=== PATIENT | female | born 1935 | race Caucasian/White ===

== ENCOUNTER 2017-08-24 15:00 | Inpatient (IN) | payer MEDICARE ==
[2017-08-24] MEDS ORDERED: ONDANSETRON 4 MG/2 ML VIAL IVP STA (15:21)
[2017-08-24] MEDS ORDERED: MORPHINE SULFATE 4 MG/ML SYRINGE IVP STA ×2 (15:21→17:26)
[2017-08-24] MEDS ORDERED: IPRATROPIUM-ALBUTEROL 3 ML NEB INHALATION STA (15:21)
[2017-08-24] MEDS ORDERED: DIPH,PERTUS(ACELL)TETVAC-LF 0.5 ML VIAL IM ONE (15:30)
--- NOTE | 2017-08-24 15:34 | ED ---
Fall HPI - General Chief Complaint: Fall Stated Complaint: fall Time Seen by Provider: 08/24/17 15:03 Source: patient, family, EMS Mode of arrival: EMS Limitations: physical limitation - History of Present Illness Initial Comments: This is a 81-year-old female presents emergency Department chief complaint of Fall. Patient States That She Tripped over a Board in the Garage and Fell onto Her Right Hip. Patient States That She Has Right Hip and Right Groin Pain. She Denies Any Head Injury No Loss Conscious. She's Had No Prior Orthopedic Surgeries. Patient Also States That She's Been Sick with Cough Congestion Has Been on Second on Antibiotics and Recent Steroids. Patient States That She Still Has a Persistent Cough. She Is a Former Smoker No Official Diagnosis COPD or Asthma. Patient Reports No Fever No Chills. Patient has no mental abdominal pain. She does have some skin tears on bilateral arm but no pain associated with them. Patient is unsure when her last tetanus was. Patient has a fentanyl from EMS. - Related Data Home Medications Medication Instructions Recorded Confirmed Clopidogrel [Plavix] 75 mg PO DAILY 08/24/17 08/24/17 Doxycycline Hyclate [Vibramycin] 100 mg PO BID 08/24/17 08/24/17 Losartan/Hydrochlorothiazide 1 tab PO DAILY 08/24/17 08/24/17 [Hyzaar 100-25 Tablet] Sertraline [Zoloft] 50 mg PO HS 08/24/17 08/24/17 amLODIPine [Norvasc] 5 mg PO HS 08/24/17 08/24/17 methylPREDNISolone [Medrol Dose See Taper PO DIRECTED 08/24/17 08/24/17 Pack] Allergies Allergy/AdvReac Type Severity Reaction Status Date / Time Penicillins Allergy Unknown Verified 08/24/17 15:47 codeine AdvReac Nausea & Verified 08/24/17 15:47 Vomiting Review of Systems ROS Statement: Those systems with pertinent positive or pertinent negative responses have been documented in the HPI. ROS Other: All systems not noted in ROS Statement are negative. Past Medical History Past Medical History: Cancer History of Any Multi-Drug Resistant Organisms: None Reported Past Surgical History: Cholecystectomy, Heart Catheterization With Stent, Hernia Repair, Hysterectomy Past Psychological History: Depression Smoking Status: Former smoker Past Alcohol Use History: Rare Past Drug Use History: None Reported General Exam Limitations: no limitations General appearance: alert, in no apparent distress Head exam: Present: atraumatic, normocephalic, normal inspection Neck exam: Present: normal inspection, full ROM. Absent: tenderness, meningismus, lymphadenopathy Respiratory exam: Present: wheezes. Absent: normal lung sounds bilaterally, respiratory distress, rales, rhonchi, stridor Cardiovascular Exam: Present: regular rate, normal rhythm, normal heart sounds. Absent: systolic murmur, diastolic murmur, rubs, gallop, clicks GI/Abdominal exam: Present: soft, normal bowel sounds. Absent: distended, tenderness, guarding, rebound, rigid Extremities exam: Present: other (Bilateral arms are notable skin tear, right hip tenderness with palpation there is some shortening rotation noted neurovascular intact) Back exam: Absent: CVA tenderness (R), CVA tenderness (L) Skin exam: Present: warm, dry, intact, normal color. Absent: rash Course Vital Signs 08/24/17 08/24/17 08/24/17 15:05 16:15 16:20 Temperature 98.8 F Pulse Rate 91 96 94 Respiratory 18 18 Rate Blood Pressure 173/76 186/79 O2 Sat by Pulse 89 L 90 L Oximetry 08/24/17 08/24/17 16:31 17:29 Temperature Pulse Rate 94 101 H Respiratory 18 Rate Blood Pressure 181/81 O2 Sat by Pulse 90 L Oximetry Medical Decision Making - Medical Decision Making 81-year-old female presented emergency dept for a fall. Patient's found to have right hip fracture. Patient also had a mass like structure on x-ray of her chest. She did have CT which shows mass concerning for malignancy. Case discussed with neck branch on-call for orthopedics. Patient will be admitted to orthopedics with consult to medicine. - Lab Data Result diagrams: 08/24/17 15:54 08/24/17 15:54 Lab Results 08/24/17 08/24/17 08/24/17 Range/Units 15:54 15:54 15:54 WBC 17.6 H (3.8-10.6) k/uL RBC 5.10 (3.80-5.40) m/uL Hgb 14.6 (11.4-16.0) gm/dL Hct 43.4 (34.0-46.0) % MCV 85.1 (80.0-100.0) fL MCH 28.6 (25.0-35.0) pg MCHC 33.6 (31.0-37.0) g/dL RDW 15.3 (11.5-15.5) % Plt Count 618 H (150-450) k/uL Neutrophils % 85 % Lymphocytes % 9 % Monocytes % 4 % Eosinophils % 1 % Basophils % 0 % Neutrophils # 15.1 H (1.3-7.7) k/uL Lymphocytes # 1.5 (1.0-4.8) k/uL Monocytes # 0.6 (0-1.0) k/uL Eosinophils # 0.2 (0-0.7) k/uL Basophils # 0.1 (0-0.2) k/uL PT 11.0 (9.0-12.0) sec INR 1.1 (<1.2) APTT 24.1 (22.0-30.0) sec Sodium 139 (137-145) mmol/L Potassium 4.4 (3.5-5.1) mmol/L Chloride 101 (98-107) mmol/L Carbon Dioxide 23 (22-30) mmol/L Anion Gap 15 mmol/L BUN 22 H (7-17) mg/dL Creatinine 0.67 (0.52-1.04) mg/dL Est GFR (CKD-EPI)AfAm >90 (>60 ml/min/1.73 sqM) Est GFR (CKD-EPI)NonAf 82 (>60 ml/min/1.73 sqM) Glucose 157 H (74-99) mg/dL Calcium 9.3 (8.4-10.2) mg/dL Total Bilirubin 0.4 (0.2-1.3) mg/dL AST 24 (14-36) U/L ALT 21 (9-52) U/L Alkaline Phosphatase 114 (38-126) U/L Total Protein 6.6 (6.3-8.2) g/dL Albumin 3.8 (3.5-5.0) g/dL Disposition Clinical Impression: Fall, Closed right hip fracture, Lung mass Disposition: ADMITTED IP TO THIS [facility] Condition: Fair Referrals: Nonstaff,Physician [REFERRING] - 1-2 days
[2017-08-24 16:16] LABS: Basophils # (A) 0.1 k/uL (0-0.2); Basophils % (A) 0 %; Eosinophils # (A) 0.2 k/uL (0-0.7); Eosinophils % (A) 1 %; HCT 43.4 % (34.0-46.0); HGB 14.6 gm/dL (11.4-16.0); Lymphocytes # (A) 1.5 k/uL (1.0-4.8); Lymphocytes % (A) 9 %; MCH 28.6 pg (25.0-35.0); MCHC 33.6 g/dL (31.0-37.0); MCV 85.1 fL (80.0-100.0); Mean Platelet Volume 8.7; Monocytes # (A) 0.6 k/uL (0-1.0); Monocytes % (A) 4 %; Neutrophils # (A) 15.1 k/uL (1.3-7.7); Neutrophils % (A) 85 %; Platelet Count 618 k/uL (150-450); RDW 15.3 % (11.5-15.5); WBC 17.6 k/uL (3.8-10.6)
[2017-08-24] MEDS ORDERED: RX INFO: IV CONTRAST WAS GIVEN 1 EACH MISC MISCELLANE PRN (16:17)
--- NOTE | 2017-08-24 16:23 | XR ---
EXAMINATION TYPE: XR chest 1V DATE OF EXAM: 08/24/2017 HISTORY: Shortness of breath. COMPARISON: 01/13/2010 TECHNIQUE: Single view of the chest is submitted. FINDINGS: Demonstrated are scattered senescent parenchymal change. There is left hilar mass noted measuring 5.5 x 5.5 cm felt to reflect malignancy until proven otherwi se. No additional nodules are seen. Suspect AP window adenopathy. The heart is stable. Hilar and mediastinal structures are within normal limits. Degenerative changes are seen of the dorsal spine. IMPRESSION: 1. Left hilar mass felt to reflect malignancy until proven otherwise.
[2017-08-24 16:24] LABS: INR 1.1 (<1.2); Partial Thromboplastin Time 24.1 sec (22.0-30.0)
--- NOTE | 2017-08-24 16:25 | XR ---
EXAMINATION TYPE: XR Hip RT and AP Pelvis DATE OF EXAM: 08/24/2017 COMPARISON: NONE HISTORY: Pain TECHNIQUE: Single view of the pelvis and 2 views of the right hip are submitted. FINDINGS: Lytic lesion in the region of the right femoral neck with pathologic fracture noted. No add itional fractures or lesions identified with certainty at this time. IMPRESSION: 1. Suspect pathologic fracture right femoral neck.
[2017-08-24 16:29] LABS: ALT 21 U/L (9-52); AST 24 U/L (14-36); Albumin 3.8 g/dL (3.5-5.0); Alkaline Phosphatase 114 U/L (38-126); Anion Gap 15 mmol/L; Blood Urea Nitrogen 22 mg/dL (7-17); Calcium 9.3 mg/dL (8.4-10.2); Carbon Dioxide 23 mmol/L (22-30); Chloride 101 mmol/L (98-107); Glucose 157 mg/dL (74-99); Potassium 4.4 mmol/L (3.5-5.1); Sodium 139 mmol/L (137-145); Total Bilirubin 0.4 mg/dL (0.2-1.3); Total Protein 6.6 g/dL (6.3-8.2)
--- NOTE | 2017-08-24 17:32 | CT ---
EXAMINATION TYPE: CT chest w con DATE OF EXAM: 08/24/2017 COMPARISON: NONE HISTORY: Fall. CT DLP: 561 mGycm Automated exposure control for dose reduction was used. CONTRAST: CT scan of the chest is performed with IV Contrast, patient injected with 100ml mL of Isovue M300. FINDINGS: There is a 2 cm pleural-based nodular density at the left lung apex. There is mild pleural thickening at the lung apices. There is coarse interstitial density in both lungs with groundglass density. The re is a 5 cm mass at the left pulmonary hilum. There is a 5 cm masslike infiltrate in the left lower lobe extending to the left pulmonary hilum. There is a 1.5 cm soft tissue nodular density in the left midlung. The heart is enlarged. There is no pericardial effusion. There is there is a 3.5 x 2 cm sub carinal enlarged lymph node. There is a 2 x 1 cm pleural-based infiltrate in the posterior right lowe r lobe. There is spurring in the thoracic spine. I see no focal bone destruction. I see no filling de fects in the pulmonary arteries. Thoracic aorta is atheromatous. There is no evidence of aneurysm or dissection. IMPRESSION: Left hilar mass and left lower lobe masslike infiltrate suspicious for primary malignanc y. Enlarged subcarinal lymph node. Pulmonary interstitial fibrotic changes.
[2017-08-24] MEDS ORDERED: NALOXONE 0.4 MG/ML 1 ML VIAL IV PRN (17:38)
[2017-08-24] MEDS ORDERED: hydrALAZINE HCL 20 MG/ML 1 ML VIAL IVP STA (18:15)
[2017-08-24] MEDS ORDERED: hydrALAZINE HCL 20 MG/ML 1 ML VIAL IVP PRN (18:37)
[2017-08-24] MEDS ORDERED: ALPRAZolam 0.25 MG TAB PO PRN (18:37)
[2017-08-24] MEDS ORDERED: TEMAZEPAM 15 MG CAP PO PRN (18:37)
[2017-08-24 18:47] LABS: Appearance,Urine Clear (Clear); Bilirubin,Urine Negative (Negative); Blood,Urine Negative (Negative); Color,Urine Yellow; Glucose,Urine (UA) Negative (Negative); Ketones,Urine Negative (Negative); Leukocyte Esterase,Urine Negative (Negative); Nitrite,Urine Negative (Negative); Protein,Urine Negative (Negative); Specific Gravity,Urine 1.025 (1.001-1.035); Urobilinogen,Urine <2.0 mg/dL (<2.0)
--- NOTE | 2017-08-24 20:20 | CONS ---
CONSULTATION REASON FOR CONSULTATION: Advice regarding CAD, stent and other medical issues requested by Orthopedic Surgery. HISTORY OF PRESENT ILLNESS: This 81-year-old woman with a past history of CAD stent, history of cholecystectomy, history of depression apparently had a fall, tripping and falling and the patient was complaining of right hip pain. The patient was taken to [facility]. The patient is followed by in the outpatient setting. The x-ray showed suspected pathology fracture of the right femoral neck. The patient also had a CT scan of the chest which showed left hilar mass with left lower lobe masslike lesion, possibly malignancy. Workup is not done at this time. There is no history of fever, rigors. No history of headache, loss of consciousness or seizures. The previous exercise capacity appears to be excellent. PAST MEDICAL HISTORY: Of cholecystectomy, CAD, stent, history of depression, history of nicotine dependence. MEDICATIONS: Prior to admission include: 1. Losartan Hyzaar one p.o. daily. 2. Zoloft 50 mg q.h.s. 3. Vibramycin 100 mg p.o. b.i.d. 4. Plavix 75 mg p.o. daily. 5. Medrol Dosepak and p.r.n. 6. Norvasc 5 mg q.h.s. ALLERGIES: PENICILLIN AND CODEINE. FAMILY HISTORY: No history of heart disease or strokes in the family. SOCIAL HISTORY: Previous history of smoking. No history of alcohol intake. REVIEW OF SYSTEMS: ENT: No diminished hearing or diminished vision. CARDIOVASCULAR: No angina or palpitations. Respiration: As mentioned earlier. GI no nausea. no dysuria. Nervous system: No numbness, weakness. Allergy/ Immunology: No asthma or hayfever. Musculoskeletal: As mentioned earlier. Hematology/Oncology : As mentioned earlier. Endocrine: No history of diabetes or hypothyroidism. Constitutional: As mentioned earlier. Dermatology: Negative. Rheumatology: Negative. Psychiatric: As mentioned earlier. PHYSICAL EXAMINATION: GENERAL: The patient is alert and oriented times three. VITAL SIGNS: Pulse 98, blood pressure 191/80, respiration 18, temperature 98 degrees, pulse ox 94% on 4 L. HEENT: Conjunctivae normal. Oral mucosa moist. NECK: No jugular venous distention. No carotid bruit. No lymph node enlargement. CARDIOVASCULAR: S1, S2. No S3, no S4. RESPIRATORY: Breath sounds diminished in the bases. A few scattered rhonchi and crackles. ABDOMEN: Soft, nontender. No mass palpable. LEGS: Status post right hip fracture. NERVOUS SYSTEM: Higher functions as mentioned earlier, moves all 4 limbs, no focal motor-sensory deficits. LYMPHATICS: No lymph nodes palpable in the neck, axillae or groin. SKIN: No ulcer, rashes or bleeding. LABS: WBC 17.6, platelets 618, glucose 157. ASSESSMENT: 1. Status post right femoral neck possible pathological fracture. 2. Possible left hilar mass with left lower lobe mass with possible lung cancer. 3. Increased WBC. 4. Increased random blood sugar. 5. Increased platelets. 6. Possible chronic obstructive pulmonary disease. 7. History of nicotine dependence. 8. History of cholecystectomy. 9. History of coronary artery disease/stent. 10.History of hernia repair. 11.History of depression. 12.FULL CODE. RECOMMENDATIONS AND DISCUSSION: In this 81-year-old woman who presented with multiple complex medical issues, we will monitor the patient closely, continue the current medication, continue symptomatic treatment. Resume the home medications. I would also recommend cardiology and pulmonary consultations and the patient did not have a definite workup yet, but the patient is already on antiplatelet agents. The patient will be cleared for surgery once cleared by Cardiology and pulmonology. Guarded prognosis because of multiple complex medical issues. Further recommendations to follow. Copy being forwarded to who is the primary physician. Thank you for letting us participate in the care of this patient. MMODL / IJN: [id number] / LAURA
[2017-08-24] MEDS: ONDANSETRON 4 MG/2 ML VIAL IVP PRN (21:06)
[2017-08-24] MEDS: MORPHINE SULFATE 4 MG/ML SYRINGE IV PRN (21:07)
[2017-08-24] MEDS: METOPROLOL TARTRATE 12.5 MG TAB PO SCH ×2 (21:07→21:23)
[2017-08-24] MEDS: SERTRALINE 50 MG TAB PO SCH (21:08)
[2017-08-24] MEDS: SODIUM CHLORIDE 0.9% 1,000 ML IV SCH (21:08)
[2017-08-24] MEDS: amLODIPine 5 MG TAB PO SCH (21:08)
[2017-08-24] MEDS: HEPARIN SODIUM,PORCINE 5,000 UNIT/ML 1 ML VIAL SQ SCH (21:09)
[2017-08-25] MEDS: MORPHINE SULFATE 4 MG/ML SYRINGE IV PRN (03:51)
[2017-08-25] MEDS: HYDROcodone/APAP 5-325MG 1 EACH TAB PO PRN ×4 (03:58→22:57)
[2017-08-25] MEDS: ONDANSETRON 4 MG/2 ML VIAL IVP PRN (04:06)
[2017-08-25] MEDS ORDERED: RX INFO: IV CONTRAST WAS GIVEN 1 EACH MISC MISCELLANE PRN (05:08)
[2017-08-25] MEDS ORDERED: ONDANSETRON 4 MG/2 ML VIAL IVP PRN (05:08)
[2017-08-25] MEDS ORDERED: METOCLOPRAMIDE 5 MG/ML 2 ML VIAL IVP PRN (05:34)
[2017-08-25] MEDS ORDERED: METOCLOPRAMIDE 5 MG/ML 2 ML VIAL IVP SCH (06:00)
--- NOTE | 2017-08-25 07:06 | P.CRDCN ---
History of Present Illness Consult date: 08/25/17 Chief complaint: Shortness of breath History of present illness: This is a pleasant 82-year-old female patient who currently according to her does not follow with any pulper tender with a past medical history significant for peripheral arterial disease and she describes stenting in the right leg was performed by Dr. Matthews recently, hypertension, dyslipidemia, and history of TIA, was admitted to the hospital after she fell at home. The patient was walking in her garage at home when she tripped and landed on the right side of the body and developed after that the right hip discomfort. The x -ray in the hospital revealed pathologic fracture of the right hip. The patient was admitted to the surgical floor for possible surgery in the next 24 hours. The chest x-ray on admission revealed no acute abnormalities but it did show possible left lower lobe mass. There is no 12 please EKG was performed. The pelvis x-ray revealed right hip fracture. Computed tomography scan of the chest was performed and revealed suspicious malignancy in the left lower long surrounded bilateral old. 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 During her hospitalization and early this morning she developed shortness of breath and also she was tachycardic and hypertensive. There is question regarding PE and the patient is in process to have a VQ scan done later today. Clinically she denies having any chest pain or discomfort but she still have some shortness of breath. She stated that she has been struggling with shortness of breath for the last several days and she has been treated for upper respiratory infection by her primary care physician. Also she describes cough associated with sputum. No history of coronary artery disease or congestive heart failure or cardiac arrhythmia. Hemodynamically, she is tachycardic and she is hypertensive. I'm going to increase the dose of metoprolol to 50 mg by mouth twice a day. I will obtain serial cardiac enzymes to rule out an acute coronary event. Obtain 12 please EKG as well. Also would get an echocardiogram was Doppler. The patient is in process to have VQ scan to rule out a PE. Past Medical History Past Medical History: Cancer, GERD/Reflux, Hyperlipidemia, Hypertension, Osteoarthritis (OA) Additional Past Medical History / Comment(s): 1993 lt breast cancer(sx/chemo), poor circulation, tia -no residual, leakage of urine wears a pad., tmj, depression History of Any Multi-Drug Resistant Organisms: None Reported Past Surgical History: Adenoidectomy, Appendectomy, Cholecystectomy, Heart Catheterization, Hernia Repair, Hysterectomy, Tonsillectomy Additional Past Surgical History / Comment(s): lt breast bx, lt breast masectomy /reconstructive sx, rt breast reduction, colonoscopy, rt ing hernia,rt iliac stent, taylor cataract, lt eye sx for macular hole,ganglion cyst removed,cervix removed w/ totql hysterectomy, rt index finger-screw in place, Past Anesthesia/Blood Transfusion Reactions: Postoperative Nausea & Vomiting ( PONV) Past Psychological History: Depression Additional Psychological History / Comment(s): pt lives in daughter tawanna's home but has her own seperate quarters Smoking Status: Former smoker Past Alcohol Use History: Rare Additional Past Alcohol Use History / Comment(s): started smoking 1969 quit 1993 smoked 1 ppd Past Drug Use History: None Reported - Past Family History Mother Family Medical History: Congestive Heart Failure (CHF), CVA/TIA, Diabetes Mellitus Father History Unknown: Yes Medications and Allergies Home Medications Medication Instructions Recorded Confirmed Type Clopidogrel [Plavix] 75 mg PO DAILY 08/24/17 08/24/17 History Doxycycline Hyclate [Vibramycin] 100 mg PO BID 08/24/17 08/24/17 History Losartan/Hydrochlorothiazide 1 tab PO DAILY 08/24/17 08/24/17 History [Hyzaar 100-25 Tablet] Sertraline [Zoloft] 50 mg PO HS 08/24/17 08/24/17 History amLODIPine [Norvasc] 5 mg PO HS 08/24/17 08/24/17 History methylPREDNISolone [Medrol Dose See Taper PO DIRECTED 08/24/17 08/24/17 History Pack] Allergies Allergy/AdvReac Type Severity Reaction Status Date / Time Penicillins Allergy Unknown Verified 08/24/17 15:47 codeine AdvReac Nausea & Verified 08/24/17 15:47 Vomiting Physical Exam Vitals: Vital Signs Temp Pulse Pulse Resp BP BP Pulse Ox 08/25/17 04:22 93 L 08/25/17 00:45 101 H 16 08/24/17 20:10 98.7 F 101 H 16 166/65 93 L 08/24/17 18:21 98 F 98 18 191/80 94 L 08/24/17 17:29 101 H 18 181/81 90 L 08/24/17 16:31 94 08/24/17 16:20 94 08/24/17 16:15 96 18 186/79 90 L 08/24/17 15:05 98.8 F 91 18 173/76 89 L Intake and Output 08/24/17 08/25/17 08/25/17 22:59 06:59 14:59 Intake Total 50 500 Output Total 700 Balance 50 -200 Intake: Intake, IV Titration 50 500 Amount Sodium Chloride 0.9% 1, 50 500 000 ml @ 50 mls/hr IV . Q20H [facility] Rx#:[id number] Output: Urine 700 Other: # Bowel Movements 0 Weight 61.235 kg 61.235 kg - Constitutional General appearance: no acute distress - Respiratory Respiratory: bilateral: CTA - Cardiovascular Rhythm: regular Heart sounds: normal: S1, S2 Results 08/24/17 15:54 08/24/17 15:54 Cardiac Enzymes 08/24/17 Range/Units 15:54 AST 24 (14-36) U/L Coagulation 08/24/17 Range/Units 15:54 PT 11.0 (9.0-12.0) sec APTT 24.1 (22.0-30.0) sec CBC 08/24/17 Range/Units 15:54 WBC 17.6 H (3.8-10.6) k/uL RBC 5.10 (3.80-5.40) m/uL Hgb 14.6 (11.4-16.0) gm/dL Hct 43.4 (34.0-46.0) % Plt Count 618 H (150-450) k/uL Comprehensive Metabolic Panel 08/24/17 Range/Units 15:54 Sodium 139 (137-145) mmol/L Potassium 4.4 (3.5-5.1) mmol/L Chloride 101 (98-107) mmol/L Carbon Dioxide 23 (22-30) mmol/L BUN 22 H (7-17) mg/dL Creatinine 0.67 (0.52-1.04) mg/dL Glucose 157 H (74-99) mg/dL Calcium 9.3 (8.4-10.2) mg/dL AST 24 (14-36) U/L ALT 21 (9-52) U/L Alkaline Phosphatase 114 (38-126) U/L Total Protein 6.6 (6.3-8.2) g/dL Albumin 3.8 (3.5-5.0) g/dL Current Medications Generic Name Dose Route Start Last Admin Trade Name Freq PRN Reason Stop Dose Admin Acetaminophen 650 mg 08/24/17 17:38 Tylenol Tab PO Q6HR PRN Mild Pain or Fever > 100.5 Hydrocodone Bitart/Acetaminophen 1 each 08/24/17 17:38 08/25/17 03:58 Magdalena 5-325 PO 1 each Q4HR PRN Administration Moderate Pain Albuterol/Ipratropium 3 ml 08/24/17 17:40 Duoneb 0.5 Mg-3 Mg/3 Ml Soln INHALATION RT-QID PRN Shortness Of Breath Or Wheezing Alprazolam 0.25 mg 08/24/17 18:37 Xanax PO TID PRN Anxiety Amlodipine Besylate 5 mg 08/24/17 21:00 08/24/17 21:08 Norvasc PO 5 mg HS MARSHA Administration HCTZ/Losartan Potassium 2 each 08/25/17 09:00 Hyzaar 50-12.5 PO DAILY [facility] Heparin Sodium (Porcine) 5,000 unit 08/24/17 21:00 08/24/17 21:09 Heparin SQ 5,000 unit Q12HR [facility]SHA Administration Hydralazine HCl 10 mg 08/24/17 18:37 08/25/17 04:29 Apresoline IVP 10 mg Q4HR PRN Administration Blood Pressure - High Sodium Chloride 1,000 mls @ 50 mls/hr 08/24/17 21:00 08/24/17 21:08 Saline 0.9% IV 50 mls/hr .Q20H [facility]SHA Administration Metoclopramide HCl 10 mg 08/25/17 05:34 Reglan IVP Q6HR PRN Nausea And Vomiting Metoprolol Tartrate 50 mg 08/25/17 06:49 Lopressor PO BID MARSHA Miscellaneous Information 1 each 08/24/17 16:17 08/24/17 16:51 Rx Info: Iv Contrast Was Given MISCELLANE 08/26/17 16:17 1 each DAILY PRN Administration Per Protocol Miscellaneous Information 1 each 08/25/17 05:08 Rx Info: Iv Contrast Was Given MISCELLANE 08/27/17 05:08 DAILY PRN Per Protocol Morphine Sulfate 4 mg 08/24/17 17:38 08/24/17 21:07 Morphine Sulfate (Inj) IV 4 mg Q3HR PRN Administration Severe Pain Naloxone HCl 0.2 mg 08/24/17 17:38 Narcan IV Q2M PRN Opioid Reversal Ondansetron HCl 4 mg 08/25/17 05:08 Zofran IVP Q4HR PRN Nausea And Vomiting Pantoprazole Sodium 40 mg 08/25/17 07:30 Protonix PO AC-BRKFST MARSHA Sertraline HCl 50 mg 08/24/17 21:00 08/24/17 21:08 Zoloft PO 50 mg HS MARSHA Administration Temazepam 15 mg 08/24/17 18:37 Restoril PO HS PRN Insomnia Intake and Output 08/24/17 08/25/17 08/25/17 22:59 06:59 14:59 Intake Total 50 500 Output Total 700 Balance 50 -200 Intake: Intake, IV Titration 50 500 Amount Sodium Chloride 0.9% 1, 50 500 000 ml @ 50 mls/hr IV . Q20H [facility] Rx#:[id number] Output: Urine 700 Other: # Bowel Movements 0 Weight 61.235 kg 61.235 kg 08/24/17 15:54 08/24/17 15:54 Assessment and Plan Assessment: Assessment #1 status post fall and right hip fracture #2 possible malignancy in the left lower lobe of the lung #3 acute respiratory distress currently the patient is feeling better #4 uncontrolled hypertension #5 sinus tachycardia Plan #1 acute coronary event to be ruled out. We'll obtain serial cardiac enzymes and 12 please EKG. #2 obtain an echocardiogram to assess LV function #3 she is in process of having a VQ scan to rule out a PE as well #4 increase the dose of metoprolol for better blood pressure control #5 the patient is unstable to pursue the surgery at this point of time #6 we'll continue following up with her Thank you for allowing us participate in her care
[2017-08-25 07:29] LABS: Basophils # (A) 0.1 k/uL (0-0.2); Basophils % (A) 1 %; Eosinophils # (A) 0.1 k/uL (0-0.7); Eosinophils % (A) 0 %; HCT 46.5 % (34.0-46.0); HGB 15.3 gm/dL (11.4-16.0); Lymphocytes # (A) 1.1 k/uL (1.0-4.8); Lymphocytes % (A) 4 %; MCH 28.5 pg (25.0-35.0); MCHC 32.8 g/dL (31.0-37.0); MCV 86.8 fL (80.0-100.0); Mean Platelet Volume 8.4; Monocytes % (A) 4 %; Neutrophils % (A) 91 %; Platelet Count 650 k/uL (150-450); RBC 5.36 m/uL (3.80-5.40); RDW 15.6 % (11.5-15.5)
[2017-08-25 07:45] LABS: Anion Gap 14 mmol/L; Blood Urea Nitrogen 21 mg/dL (7-17); Calcium 9.3 mg/dL (8.4-10.2); Carbon Dioxide 23 mmol/L (22-30); Chloride 102 mmol/L (98-107); Glucose 175 mg/dL (74-99); Potassium 4.4 mmol/L (3.5-5.1); Sodium 139 mmol/L (137-145)
[2017-08-25 07:49] LABS: WBC 26.5 k/uL (3.8-10.6)
[2017-08-25] MEDS: IPRATROPIUM-ALBUTEROL 3 ML NEB INHALATION PRN ×4 (08:21→20:08)
[2017-08-25] MEDS: SYMBICORT 160-4.5 MCG INHALER INHALATION SCH ×2 (08:46→20:20)
--- NOTE | 2017-08-25 10:07 | P.HPOR ---
History of Present Illness H&P Date: 08/25/17 Chief Complaint: Right femoral neck fracture This is an 81-year-old female was admitted to [facility] yesterday afternoon with regards to a right hip fracture. She was seen and evaluated today at bedside, she states that she was walking in her garage when she tripped over a board and fell onto the right side. She had immediate pain and was unable to weight-bear. She denied hitting her head, she did not lose consciousness during the fall. EMS was contacted, she was brought to the hospital. Multiple lab tests and imaging test were done, images demonstrated a right femoral neck fracture. There is also concern of a lung mass noted on chest CT. I was contacted by the emergency room staff yesterday, the patient was admitted to our service, with multiple medical specialists on consult for further workup and clearance for likely surgery. Exam of bedside, the patient's resting comfortably, she has multiple family members at bedside. She notes more pain in the right hip with any type of movement or when she coughs. She denies any other extremity pain, including upper extremities, left lower extremities new-onset cervical, thoracic or lumbar pain. Apparently the patient has been dealing with upper respiratory type symptoms of the last few weeks, she's been evaluated in the outpatient setting. She does have a history of cigarette smoking. She is being evaluated by cardiology, hematology/oncology, and pulmonology. Review of Systems Constitutional: Reports as per HPI Past Medical History Past Medical History: Cancer, GERD/Reflux, Hyperlipidemia, Hypertension, Osteoarthritis (OA) Additional Past Medical History / Comment(s): 1993 lt breast cancer(sx/chemo), poor circulation, tia -no residual, leakage of urine wears a pad., tmj, depression History of Any Multi-Drug Resistant Organisms: None Reported Past Surgical History: Adenoidectomy, Appendectomy, Cholecystectomy, Heart Catheterization, Hernia Repair, Hysterectomy, Tonsillectomy Additional Past Surgical History / Comment(s): lt breast bx, lt breast masectomy /reconstructive sx, rt breast reduction, colonoscopy, rt ing hernia,rt iliac stent, taylor cataract, lt eye sx for macular hole,ganglion cyst removed,cervix removed w/ totql hysterectomy, rt index finger-screw in place, Past Anesthesia/Blood Transfusion Reactions: Postoperative Nausea & Vomiting ( PONV) Past Psychological History: Depression Additional Psychological History / Comment(s): pt lives in daughter tawanna's home but has her own seperate quarters Smoking Status: Former smoker Past Alcohol Use History: Rare Additional Past Alcohol Use History / Comment(s): started smoking 1969 quit 1993 smoked 1 ppd Past Drug Use History: None Reported - Past Family History Mother Family Medical History: Congestive Heart Failure (CHF), CVA/TIA, Diabetes Mellitus Father History Unknown: Yes Medications and Allergies Home Medications Medication Instructions Recorded Confirmed Type Clopidogrel [Plavix] 75 mg PO DAILY 08/24/17 08/24/17 History Doxycycline Hyclate [Vibramycin] 100 mg PO BID 08/24/17 08/24/17 History Losartan/Hydrochlorothiazide 1 tab PO DAILY 08/24/17 08/24/17 History [Hyzaar 100-25 Tablet] Sertraline [Zoloft] 50 mg PO HS 08/24/17 08/24/17 History amLODIPine [Norvasc] 5 mg PO HS 08/24/17 08/24/17 History methylPREDNISolone [Medrol Dose See Taper PO DIRECTED 08/24/17 08/24/17 History Pack] Allergies Allergy/AdvReac Type Severity Reaction Status Date / Time Penicillins Allergy Unknown Verified 08/24/17 15:47 codeine AdvReac Nausea & Verified 08/24/17 15:47 Vomiting Physical Examination Right lower extremity: Obvious shortening and external rotation of the extremity when compared to the contralateral side There is a bandage over the lateral aspect of the knee, skin tear from fall She is able wiggle all the toes with minimal difficulty, dorsal pedis pulses 2+ , her sensory exam to light touch is intact of the extremity She is unable to straight leg raise, logroll maneuver reproduces pain No tenderness with palpation Results - Labs Labs: Abnormal Lab Results - Last 24 Hours (Table) 08/24/17 08/24/17 08/25/17 Range/Units 15:54 15:54 07:00 WBC 17.6 H 26.5 H* (3.8-10.6) k/uL Hct 46.5 H (34.0-46.0) % RDW 15.6 H (11.5-15.5) % Plt Count 618 H 650 H (150-450) k/uL Neutrophils # 15.1 H 24.0 H (1.3-7.7) k/uL D-Dimer (<0.60) mg/L FEU BUN 22 H (7-17) mg/dL Glucose 157 H (74-99) mg/dL 08/25/17 08/25/17 Range/Units 07:00 08:01 WBC (3.8-10.6) k/uL Hct (34.0-46.0) % RDW (11.5-15.5) % Plt Count (150-450) k/uL Neutrophils # (1.3-7.7) k/uL D-Dimer 2.78 H (<0.60) mg/L FEU BUN 21 H (7-17) mg/dL Glucose 175 H (74-99) mg/dL H & H 08/24/17 08/25/17 Range/Units 15:54 07:00 Hgb 14.6 15.3 (11.4-16.0) gm/dL Hct 43.4 46.5 H (34.0-46.0) % Coagulation 08/24/17 Range/Units 15:54 INR 1.1 (<1.2) Result Diagrams: 08/25/17 07:00 08/25/17 07:00 - Diagnostic results Hip x-ray: report reviewed, image reviewed Assessment and Plan Plan: Imaging: Views of the right hip were obtained, was able to review the reports. Evidence of a femoral neck fractures present on the right side. Assessment: 1. Right femoral neck fracture 2. Status post fall from standing 3. Multiple medical comorbidities Plan: I was able to discuss the case, including physical exam findings and imaging studies with my attending Dr. Anne. Our plan is to proceed with surgical intervention, more specifically a right hip hemiarthroplasty. Depending on clearance, we like to proceed with this on 08/26/2017. Patient had multiple family members at bedside today, I was able to discuss the risk and benefits with both patient and family, this including but not excluding blood loss, infection, development of blood clots, neurovascular injury, pain and stiffness, need for subsequent surgery, risk of mortality. Patient and family undergoing understanding, and would like to pursue surgical intervention Nonweightbearing right lower extremity Nothing by mouth after midnight GI and DVT prophylaxis, patient currently takes Plavix she's been off of this for the last day, she will continue to stay off of this until after surgery Medical recommendations Pulmonary recommendations Cardiology recommendations Hematology/oncology recommendations Further recommendations to follow Time with Patient: Less than 30
--- NOTE | 2017-08-25 10:11 | P.CNPUL ---
History of Present Illness Consult date: 08/25/17 Reason for consult: dyspnea, COPD, lung mass, abnormal CXR/CT Chief complaint: Abnormal chest x-ray and CAT scan History of present illness: Pulmonary consultation 08/25/2017 This is a very pleasant 81-year-old female who presents to the emergency department having fallen and fractured her right hip. She was apparently on the garage and fell on a piece of wood that was left there by her grand son. Anyway, the patient was admitted to the hospital for further evaluation and treatment. In the process of evaluating her, she had a chest x-ray which showed a mass. A computed tomography scan was done and confirmed the mass. She is a former smoker. In addition to all this, she's been complaining of some shortness of breath chest congestion cough. Coughing up some minimal phlegm. She's been seeing Dr. Jimi Torres her primary doctor. He gave her 2 different courses of antibiotics. I had a long chat today with the patient and the patient's family. I told him that she should proceed with the hip repair. We could see her once she is out of the hospital for evaluation pulmonary function testing and a PET scan. At that point we can make a decision about what to do next. Surgery. Awaiting a couple days because the patient was on Plavix for a stent that was placed in her lower extremity. Her chest x-rays and labs were reviewed by myself. Review of Systems A 12 point review of systems is positive for shortness of breath chest congestion cough. No chest pain or chest discomfort. Coughing up minimal amount of phlegm. She was a smoker in the past and may have some underlying COPD. It appears that she could be treated for bronchitis with reactive bronchospasm and bronchial inflammation. Past Medical History Past Medical History: Cancer, GERD/Reflux, Hyperlipidemia, Hypertension, Osteoarthritis (OA) Additional Past Medical History / Comment(s): 1993 lt breast cancer(sx/chemo), poor circulation, tia -2009-no residual, leakage of urine wears a pad., tmj, depression History of Any Multi-Drug Resistant Organisms: None Reported Past Surgical History: Adenoidectomy, Appendectomy, Cholecystectomy, Heart Catheterization, Hernia Repair, Hysterectomy, Tonsillectomy Additional Past Surgical History / Comment(s): lt breast bx, lt breast masectomy /reconstructive sx, rt breast reduction, colonoscopy, rt ing hernia,rt iliac stent, taylor cataract, lt eye sx for macular hole,ganglion cyst removed,cervix removed w/ totql hysterectomy, rt index finger-screw in place, Past Anesthesia/Blood Transfusion Reactions: Postoperative Nausea & Vomiting ( PONV) Past Psychological History: Depression Additional Psychological History / Comment(s): pt lives in daughter tawanna's home but has her own seperate quarters Smoking Status: Former smoker Past Alcohol Use History: Rare Additional Past Alcohol Use History / Comment(s): started smoking 1969 quit 1993 smoked 1 ppd Past Drug Use History: None Reported - Past Family History Mother Family Medical History: Congestive Heart Failure (CHF), CVA/TIA, Diabetes Mellitus Father History Unknown: Yes Medications and Allergies Home Medications Medication Instructions Recorded Confirmed Type Clopidogrel [Plavix] 75 mg PO DAILY 08/24/17 08/24/17 History Doxycycline Hyclate [Vibramycin] 100 mg PO BID 08/24/17 08/24/17 History Losartan/Hydrochlorothiazide 1 tab PO DAILY 08/24/17 08/24/17 History [Hyzaar 100-25 Tablet] Sertraline [Zoloft] 50 mg PO HS 08/24/17 08/24/17 History amLODIPine [Norvasc] 5 mg PO HS 08/24/17 08/24/17 History methylPREDNISolone [Medrol Dose See Taper PO DIRECTED 08/24/17 08/24/17 History Pack] Allergies Allergy/AdvReac Type Severity Reaction Status Date / Time Penicillins Allergy Unknown Verified 08/24/17 15:47 codeine AdvReac Nausea & Verified 08/24/17 15:47 Vomiting Physical Exam Osteopathic Statement: *. No significant issues noted on an osteopathic structural exam other than those noted in the History and Physical/Consult. Vitals: Vital Signs Temp Pulse Pulse Resp BP BP Pulse Ox 08/25/17 08:44 90 08/25/17 08:34 88 08/25/17 07:00 99.1 F 92 18 152/64 96 08/25/17 05:35 30 H 198/98 93 L 08/25/17 04:22 93 L 08/24/17 20:10 98.7 F 101 H 16 166/65 93 L 08/24/17 18:21 98 F 98 18 191/80 94 L 08/24/17 17:29 101 H 18 181/81 90 L 08/24/17 16:31 94 08/24/17 16:20 94 08/24/17 16:15 96 18 186/79 90 L 08/24/17 15:05 98.8 F 91 18 173/76 89 L Intake and Output 08/24/17 08/25/17 08/25/17 22:59 06:59 14:59 Intake Total 50 500 237 Output Total 700 Balance 50 -200 237 Intake: Intake, IV Titration 50 500 Amount Sodium Chloride 0.9% 1, 50 500 000 ml @ 50 mls/hr IV . Q20H [facility] Rx#:[id number] Oral 237 Output: Urine 700 Other: Voiding Method Indwelling Catheter Indwelling Catheter # Bowel Movements 0 Weight 61.235 kg 61.235 kg No acute distress, oriented 3. Nasal O2 in place. Mild shortness of breath noted. HEENT examination is grossly unremarkable. Mucous membranes are moist. No oral lesions. Neck supple. Full range of motion. No adenopathy thyromegaly or neck vein distention. Cardiovascular examination reveals regular rhythm rate. S1-S2 normal. No S3 or S4. No discernible murmur noted. Lungs reveal diffuse coarse rhonchi and wheezes. She is clearly bronchospastic. No crackles. Breath sounds are equal bilaterally. Abdomen soft bowel sounds are heard. No masses or tenderness. Extremities are intact. Right hip pain. Skin is without rash or lesion. Neurologic examination is brief but nonfocal. Results - Laboratory Findings CBC and BMP: 08/25/17 07:00 08/25/17 07:00 PT/INR, D-dimer PT 11.0 sec (9.0-12.0) 08/24/17 15:54 INR 1.1 (<1.2) 08/24/17 15:54 D-Dimer 2.78 mg/L FEU (<0.60) H 08/25/17 08:01 Abnormal lab findings: Abnormal Labs 08/24/17 08/24/17 08/25/17 15:54 15:54 07:00 WBC 17.6 H 26.5 H* Hct 46.5 H RDW 15.6 H Plt Count 618 H 650 H Neutrophils # 15.1 H 24.0 H D-Dimer BUN 22 H Glucose 157 H 08/25/17 08/25/17 07:00 08:01 WBC Hct RDW Plt Count Neutrophils # D-Dimer 2.78 H BUN 21 H Glucose 175 H - Diagnostic Findings Chest x-ray: image reviewed (X-rays labs medications and CAT scans are all reviewed.) Assessment and Plan Assessment: Assessment Status post fall with right hip fracture. History of hypertension History of breast cancer, treated with left mastectomy as well as radiation and chemotherapy Recent upper respiratory tract infection treated with 2 courses of antibiotics Previous history of tobacco use, rule out COPD Chest x-ray and computed tomography scan findings suggesting significant abnormalities in the left chest consistent with either bronchogenic carcinoma and/or recurrent metastatic breast cancer. Status post cardiac catheterization with stent placement Peripheral vascular occlusive disease with previous stent placement Shortness of breath, rule out pulmonary embolism Plan: Plan dated 08/25/2017 The patient will have a VQ scan to rule out pulmonary embolism. I would've preferred a CT angiogram but she had a CT of the chest with contrast yesterday. We may have to do a CT angiogram tomorrow if there is any question about pulmonary embolism as part of her shortness of breath. Her d-dimer was elevated at 2.78. I did explain to the patient that she should go ahead and proceed with the repair of the right hip. The lung abnormalities can be worked up as outpatient. She will certainly need a pulmonary function test and a PET scan. Additional recommendations and suggestions are forthcoming. For her current situation, we'll make sure she is on oxygen therapy bronchodilators Symbicort and some steroids. Critical care time is 32 minutes. Time with Patient: Greater than 30
[2017-08-25] MEDS: methylPREDNISolone SOD SUCCI 125 MG/2 ML VIAL IV SCH ×3 (11:18→18:23)
[2017-08-25] MEDS: HEPARIN SODIUM,PORCINE 5,000 UNIT/ML 1 ML VIAL SQ SCH ×2 (11:18→23:08)
--- NOTE | 2017-08-25 12:03 | ECHOF ---
Referral Reason:Cardiac Clearance for surgery MEASUREMENTS -------- HEIGHT: 152.4 cm WEIGHT: 61.2 kg BP: 152/64 IVSd: 1.2 cm (0.6 - 1.1) LVIDd: 3.9 cm (3.9 - 5.3) LVPWd: 1.4 cm (0.6 - 1.1) IVSs: 1.2 cm LVIDs: 2.9 cm LVPWs: 1.6 cm LA Diam: 3.4 cm (2.7 - 3.8) LAESV Index (A-L): 34.83 ml/m Ao Diam: 2.4 cm (2.0 - 3.7) AV Cusp: 1.6 cm (1.5 - 2.6) LA Diam: 3.2 cm (2.7 - 3.8) EPSS: 0.5 cm MV E Duran: 1.07 m/s MV DecT: 123 ms MV A Duran: 0.96 m/s MV E/A Ratio: 1.12 AR PHT: 297 ms RAP: 5.00 mmHg RVSP: 62.55 mmHg MV EF SLOPE: 75.75 mm/s (70 - 150) MV EXCURSION: 1.12 cm (> 18.000) FINDINGS -------- Sinus rhythm. This was a technically good study. The left ventricular size is normal. There is mild concentric left ventricular hypertrophy. Overa ll left ventricular systolic function is low-normal with, an EF between 50 - 55 %. The right ventricle is normal in size. The left atrial size is normal. LA is moderately dilated 34-39 ml/m2 The right atrial size is normal. There is mild aortic regurgitation. Mild mitral annular calcification present. Mild mitral regurgitation is present. Mild tricuspid regurgitation present. There is moderate pulmonary hypertension. The right ventric ular systolic pressure, as measured by Doppler, is 62.55mmHg. Trace/mild (physiologic) pulmonic regurgitation. The aortic root size is normal. There is no pericardial effusion. CONCLUSIONS -------- 1. Sinus rhythm. 2. The left ventricular size is normal. 3. There is mild concentric left ventricular hypertrophy. 4. Overall left ventricular systolic function is low-normal with, an EF between 50 - 55 %. 5. The right ventricle is normal in size. 6. The left atrial size is normal. 7. LA is moderately dilated 34-39 ml/m2 8. The right atrial size is normal. 9. There is mild aortic regurgitation. 10. Mild mitral annular calcification present. 11. Mild mitral regurgitation is present. 12. Mild tricuspid regurgitation present. 13. There is moderate pulmonary hypertension. 14. The right ventricular systolic pressure, as measured by Doppler, is 62.55mmHg. 15. Trace/mild (physiologic) pulmonic regurgitation. 16. The aortic root size is normal. 17. There is no pericardial effusion. FLAVOR EXTRACTOR: Nicol Rodriguez RDCS
[2017-08-25] MEDS: PANTOPRAZOLE 40 MG TABLET PO SCH (12:16)
[2017-08-25] MEDS: LOSARTAN-HCTZ 50-12.5 MG 1 EACH TAB PO SCH (12:17)
[2017-08-25] MEDS: METOPROLOL TARTRATE 50 MG TAB PO SCH ×2 (12:17→22:57)
[2017-08-25] MEDS: LEVOFLOXACIN 500MG-D5W PMX 500 MG in DEXTROSE/WATER 1 100ML.BAG IVPB SCH (12:18)
--- NOTE | 2017-08-25 12:29 | NM ---
EXAMINATION TYPE: NM pul vent and perfuse DATE OF EXAM: 08/25/2017 COMPARISON: Chest CT 08/24/2017 and chest x-ray 08/24/2017 HISTORY: TECHNIQUE: Utilizing inhalation of 68.1 mCi Tc 99m DTPA aerosol and intravenous injection of 5.36 mC i of Tc 99m MAA, ventilation and perfusion images are acquired post injection in multiple projections . FINDINGS: Normal enhancement of the pulmonary arteries noted on prior CT of the chest. There is decreased reaff irms uptake on ventilation and perfusion scanning is corresponds to the patient's left upper lobe debby g mass on chest CT. There is no evidence of mismatched defects. 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
--- NOTE | 2017-08-25 15:53 | P.CONS ---
History of Present Illness - Reason for Consult Consult date: 08/25/17 Lung masses - History of Present Illness The patient is an 81-year-old lady, in generally good health. For about 2-3 weeks prior to this admission, the patient had noted wheezing, shortness of breath and some cough which she attributed to an upper respiratory tract infection. The patient subsequently tripped while walking across her garage and fell. She did not lose consciousness or hit her head. She hurt her right hip, and was brought to the ER where she was found to have a right femoral neck fracture. Routine chest x-ray appear to indicate a left lung mass. The patient subsequently had a computed tomography scan of the chest which confirmed the presence of a pleural-based left upper lobe, left hilar, as well as right lower lobe masses along with masslike infiltrate in the left lower lobe. Mediastinal adenopathy was also noted. This is felt to be concerning for malignancy. Consult was therefore placed a further evaluation and recommendations The patient had a history of left-sided breast cancer diagnosed about 30 years ago, treated with mastectomy followed by chemotherapy and hormonal therapy under the care of Dr. Dominguez. She has a history of smoking for about 20 years but quit about 20 years ago. Review of Systems Constitutional: Reports fatigue, Reports weight loss Eyes: denies blurred vision, denies pain Ears: deny: decreased hearing, ear discharge, earache, tinnitus Ears, nose, mouth and throat: Denies headache, Denies sore throat Cardiovascular: Reports dyspnea on exertion Respiratory: Reports cough, Reports dyspnea Gastrointestinal: Denies abdominal pain, Denies diarrhea, Denies nausea, Denies vomiting Genitourinary: Denies dysuria, Denies hematuria Menstruation: Reports postmenopausal Musculoskeletal: Reports as per HPI Musculoskeletal: right: hip pain, hip stiffness Integumentary: Denies pruritus, Denies rash Neurological: Denies numbness, Denies weakness Psychiatric: Denies anxiety, Denies depression Endocrine: Denies fatigue, Denies weight change Hematologic/Lymphatic: Reports as per HPI Past Medical History Past Medical History: Cancer, GERD/Reflux, Hyperlipidemia, Hypertension, Osteoarthritis (OA) Additional Past Medical History / Comment(s): 1993 lt breast cancer(sx/chemo), poor circulation, tia -2009-no residual, leakage of urine wears a pad., tmj, depression History of Any Multi-Drug Resistant Organisms: None Reported Past Surgical History: Adenoidectomy, Appendectomy, Cholecystectomy, Heart Catheterization, Hernia Repair, Hysterectomy, Tonsillectomy Additional Past Surgical History / Comment(s): lt breast bx, lt breast masectomy /reconstructive sx, rt breast reduction, colonoscopy, rt ing hernia,rt iliac stent, taylor cataract, lt eye sx for macular hole,ganglion cyst removed,cervix removed w/ totql hysterectomy, rt index finger-screw in place, Past Anesthesia/Blood Transfusion Reactions: Postoperative Nausea & Vomiting ( PONV) Past Psychological History: Depression Additional Psychological History / Comment(s): pt lives in daughter tawanna's home but has her own seperate quarters Smoking Status: Former smoker Past Alcohol Use History: Rare Additional Past Alcohol Use History / Comment(s): started smoking 1968 quit 1993 smoked 1 ppd Past Drug Use History: None Reported - Past Family History Mother Family Medical History: Congestive Heart Failure (CHF), CVA/TIA, Diabetes Mellitus Father History Unknown: Yes Medications and Allergies Home Medications Medication Instructions Recorded Confirmed Type Clopidogrel [Plavix] 75 mg PO DAILY 08/24/17 08/24/17 History Doxycycline Hyclate [Vibramycin] 100 mg PO BID 08/24/17 08/24/17 History Losartan/Hydrochlorothiazide 1 tab PO DAILY 08/24/17 08/24/17 History [Hyzaar 100-25 Tablet] Sertraline [Zoloft] 50 mg PO HS 08/24/17 08/24/17 History amLODIPine [Norvasc] 5 mg PO HS 08/24/17 08/24/17 History methylPREDNISolone [Medrol Dose See Taper PO DIRECTED 08/24/17 08/24/17 History Pack] Allergies Allergy/AdvReac Type Severity Reaction Status Date / Time Penicillins Allergy Unknown Verified 08/24/17 15:47 codeine AdvReac Nausea & Verified 08/24/17 15:47 Vomiting Physical Exam Vitals: Vital Signs Temp Pulse Pulse Pulse Resp BP BP 08/25/17 15:00 98.6 F 92 20 151/70 08/25/17 11:37 100 08/25/17 11:27 92 08/25/17 08:44 90 08/25/17 08:34 88 08/25/17 07:00 99.1 F 92 18 152/64 08/25/17 05:35 30 H 198/98 08/25/17 04:22 08/24/17 20:10 98.7 F 101 H 16 166/65 08/24/17 18:21 98 F 98 18 191/80 08/24/17 17:29 101 H 18 181/81 08/24/17 16:31 94 08/24/17 16:20 94 08/24/17 16:15 96 18 186/79 Pulse Ox 08/25/17 15:00 95 08/25/17 11:37 94 L 08/25/17 11:27 08/25/17 08:44 08/25/17 08:34 08/25/17 07:00 96 08/25/17 05:35 93 L 08/25/17 04:22 93 L 08/24/17 20:10 93 L 08/24/17 18:21 94 L 08/24/17 17:29 90 L 08/24/17 16:31 08/24/17 16:20 08/24/17 16:15 90 L Intake and Output 08/25/17 08/25/17 08/25/17 06:59 14:59 22:59 Intake Total 500 777 Output Total 700 Balance -200 777 Intake: IV 400 Sodium Chloride 0.9% 1, 400 000 ml @ 50 mls/hr IV . Q20H MARSHA Rx#:[id number] Intake, IV Titration 500 Amount Sodium Chloride 0.9% 1, 500 000 ml @ 50 mls/hr IV . Q20H MARSHA Rx#:[id number] Oral 377 Output: Urine 700 Other: Voiding Method Indwelling Catheter # Bowel Movements 0 Weight 61.235 kg - Constitutional General appearance: no acute distress - EENT Eyes: PERRLA ENT: hearing grossly normal, normal oropharynx - Neck Neck: no lymphadenopathy Thyroid: bilateral: normal size - Respiratory Respiratory: bilateral: wheezing - Cardiovascular Rhythm: regular Heart sounds: normal: S1, S2 - Gastrointestinal General gastrointestinal: normal bowel sounds, soft - Integumentary Integumentary: normal - Neurologic Neurologic: CNII-XII intact - Musculoskeletal Musculoskeletal: generalized weakness, right sided weakness (Right lower extremity weakness due to hip fracture) - Psychiatric Psychiatric: A&O x's 3, appropriate affect Results CBC & Chem 7: 08/25/17 07:00 08/25/17 07:00 Labs: Abnormal Lab Results - Last 24 Hours (Table) 08/24/17 08/24/17 08/25/17 Range/Units 15:54 15:54 07:00 WBC 17.6 H 26.5 H* (3.8-10.6) k/uL Hct 46.5 H (34.0-46.0) % RDW 15.6 H (11.5-15.5) % Plt Count 618 H 650 H (150-450) k/uL Neutrophils # 15.1 H 24.0 H (1.3-7.7) k/uL D-Dimer (<0.60) mg/L FEU BUN 22 H (7-17) mg/dL Glucose 157 H (74-99) mg/dL 08/25/17 08/25/17 Range/Units 07:00 08:01 WBC (3.8-10.6) k/uL Hct (34.0-46.0) % RDW (11.5-15.5) % Plt Count (150-450) k/uL Neutrophils # (1.3-7.7) k/uL D-Dimer 2.78 H (<0.60) mg/L FEU BUN 21 H (7-17) mg/dL Glucose 175 H (74-99) mg/dL Comments: Echocardiogram report reviewed VQ scan report reviewed Chest x-ray: report reviewed CT scan - chest: report reviewed Assessment and Plan (1) Lung mass Narrative/Plan: The clinical picture is highly suspicious for malignancy, with bilateral masses and possible postobstructive phenomenon in the left lower lobe. Possible disease include a primary lung malignancy. Metastasis is also in the differential. The patient does have a history of breast cancer. While recurrence after 10 years is rare, late recurrences 20 or even 30 years after can happen. The patient will need additional workup including tissue diagnosis. She has been evaluated by pulmonary medicine. Agree with their plan to proceed with a hip surgery first with additional workup and biopsy subsequently. In the meantime I will start workup by checking for breast cancer tumor markers. Additional imaging will be ordered, when she status post hip surgery. Current Visit: Yes Status: Acute Code(s): R91.8 - OTHER NONSPECIFIC ABNORMAL FINDING OF LUNG FIELD SNOMED Code(s): 179394347 (2) Closed right hip fracture Narrative/Plan: Agree with the plan to proceed with a hip surgery first, whenever the patient is medically stable. Given the possibility of malignancy, this would increase her risk of venous thrombus embolism post surgery. Therefore the patient should have full dose anticoagulation for prophylaxis. Current Visit: Yes Status: Acute Code(s): S72.001A - FRACTURE OF UNSP PART OF NECK OF RIGHT FEMUR, INIT SNOMED Code(s): 302036936
[2017-08-25] MEDS: SODIUM CHLORIDE 0.9% 1,000 ML IV SCH (18:30)
--- NOTE | 2017-08-25 19:06 | XR ---
EXAMINATION TYPE: XR chest 1V portable DATE OF EXAM: 08/25/2017 COMPARISON: 08/24/2017 HISTORY: Heart failure. Short of breath TECHNIQUE: Single frontal view of the chest is obtained. FINDINGS: There is patchy pulmonary edema. There is 4 cm masslike density in the left midlung. Heart size is normal. I see no definite pleural effusion. IMPRESSION: There is new pulmonary edema compared to yesterday. Consider RDS or acute heart failure. .
--- NOTE | 2017-08-25 20:00 | PN ---
PROGRESS NOTE DATE OF SERVICE: 08/25/2017 This 81-year-old woman was admitted after right femoral neck possibly pathologic fracture. She also had a left hilar mass. The patient has also had elevated WBC. Orthopedic Surgery is following the patient closely. Cardiology has also seen the patient. The patient has previous history of CAD, stent. A 2D echo with Doppler showed ejection fraction about 50% to 55%. The patient also had a white count 26.5. D-dimer is 2.78. The patient had a V/Q scan this morning and V/Q scan showed intermediate probability, possibly secondary to mass lesions, and Hematology/ Oncology has also seen the patient today. The possibility of primary lung mass or recurrence of breast cancer is also being considered. Past medical history reviewed. REVIEW OF SYSTEMS: CARDIOVASCULAR SYSTEM: No angina, palpitations. RESPIRATORY SYSTEM: As mentioned earlier. GI: No nausea, vomiting. : No dysuria or retention. NERVOUS SYSTEM: No numbness, weakness.. CURRENT MEDICATIONS: Current medications are reviewed and include: 1. Tylenol 650 q.6 p.r.n. 2. Lula 5 mg q.4 p.r.n. 3. DuoNeb q.i.d. and p.r.n. 4. Xanax 0.25 t.i.d. 5. Norvasc. 6. Symbicort 160/4.5 two puffs b.i.d. 7. Hyzaar 50/12.5 b.i.d. 8. Heparin 5000 units subcutaneously b.i.d. 9. Apresoline 10 IV q.4 p.r.n. 10.Levaquin. 11.Solu-Medrol 60 IV q.6. 12.Reglan 10 mg q.6. 13.Lopressor. 14.Narcan. 15.Zofran. 16.Protonix. 17.Zoloft. 18.Restoril. PHYSICAL EXAMINATION: Patient is alert and oriented x3. Pulse 92, blood pressure 151/70, respiratory rate 20, temperature 98.6, pulse ox 94% on 15 L. HEENT: Conjunctivae normal. Oral mucosa moist. NECK: No jugular venous distention. No carotid bruit. No lymph node enlargement. CARDIOVASCULAR SYSTEM: S1, S2 muffled. RESPIRATORY SYSTEM: Breath sounds diminished at the bases. Bilateral scattered rhonchi and crackles. Expiratory wheezing also present. ABDOMEN: Soft, non-tender. No mass palpable. LEGS: Status post fracture. NERVOUS SYSTEM: No focal deficit. LABS AT THIS TIME: Reviewed. D-dimer 2.78. WBC 10.5. ASSESSMENT: 1. Status post right femoral neck possible pathological fracture. 2. Possible left hilar mass with left lower lobe mass with possible lung cancer or breast cancer with metastasis. 3. Chronic obstructive pulmonary disease, acute exacerbation, with acute hypoxic respiratory failure. 4. Increased white count. 5. Increased random blood sugar. 6. Increased platelets. 7. History of nicotine dependence. 8. History of cholecystectomy. 9. History of coronary artery disease, stent. 10.History of hernia repair. 11.History of depression. 12.FULL CODE. RECOMMENDATIONS AND DISCUSSION: I recommend to continue current medication, continue with monitoring, symptomatic treatment. Otherwise at this time I would recommend continuing with oxygenation. Continue with the bronchodilators. Follow closely with multiple consultants. Prognosis guarded. Further recommendations to follow. Tentative surgery tomorrow. Further recommendations to follow. MMODL / IJN: [id number] / MTDD
[2017-08-25 20:31] LABS: Creatine Kinase MB 1.7 ng/mL (0.0-2.4)
[2017-08-25 20:33] LABS: Troponin I 0.088 ng/mL (0.000-0.034)
[2017-08-25] MEDS ORDERED: FUROSEMIDE 10 MG/ML 2 ML VIAL IV STA (21:11)
[2017-08-25] MEDS: amLODIPine 5 MG TAB PO SCH (22:57)
[2017-08-25] MEDS: SERTRALINE 50 MG TAB PO SCH (23:08)
[2017-08-26] MEDS: methylPREDNISolone SOD SUCCI 125 MG/2 ML VIAL IV SCH ×3 (00:25→14:22)
[2017-08-26 07:22] LABS: Basophils % (A) 0 %; Eosinophils % (A) 0 %; HCT 45.4 % (34.0-46.0); HGB 14.8 gm/dL (11.4-16.0); Lymphocytes # (A) 1.4 k/uL (1.0-4.8); Lymphocytes % (A) 7 %; MCH 28.2 pg (25.0-35.0); MCHC 32.5 g/dL (31.0-37.0); MCV 86.8 fL (80.0-100.0); Mean Platelet Volume 8.1; Monocytes # (A) 0.4 k/uL (0-1.0); Monocytes % (A) 2 %; Neutrophils # (A) 19.4 k/uL (1.3-7.7); Neutrophils % (A) 91 %; Platelet Count 575 k/uL (150-450); RBC 5.23 m/uL (3.80-5.40); RDW 15.6 % (11.5-15.5); WBC 21.3 k/uL (3.8-10.6)
[2017-08-26] MEDS: SYMBICORT 160-4.5 MCG INHALER INHALATION SCH ×3 (07:22→20:48)
[2017-08-26] MEDS: IPRATROPIUM-ALBUTEROL 3 ML NEB INHALATION PRN ×2 (07:22→10:44)
[2017-08-26 07:52] LABS: Anion Gap 13 mmol/L; Blood Urea Nitrogen 26 mg/dL (7-17); Calcium 9.3 mg/dL (8.4-10.2); Carbon Dioxide 23 mmol/L (22-30); Chloride 102 mmol/L (98-107); Glucose 161 mg/dL (74-99); Potassium 4.5 mmol/L (3.5-5.1); Sodium 138 mmol/L (137-145)
[2017-08-26] MEDS: PANTOPRAZOLE 40 MG TABLET PO SCH (08:07)
[2017-08-26] MEDS: LOSARTAN-HCTZ 50-12.5 MG 1 EACH TAB PO SCH ×2 (08:07→09:07)
[2017-08-26] MEDS: HEPARIN SODIUM,PORCINE 5,000 UNIT/ML 1 ML VIAL SQ SCH ×2 (08:07→20:15)
[2017-08-26] MEDS: METOPROLOL TARTRATE 50 MG TAB PO SCH ×3 (08:08→20:15)
--- NOTE | 2017-08-26 09:28 | CONS ---
CONSULTATION This is an 81-year-old lady with multiple comorbid conditions who has been seen and evaluated by Dr. Lazar. She came in after a fall with a right hip fracture. Her echo revealed preserved systolic function. The elevated D-dimer was addressed by a V/Q scan which was of intermediate probability. EKG revealed a sinus mechanism with a leftward axis and a IVCD of LBBB type. Initial troponin was borderline elevated. However, patient clinically appears stable. Ejection fraction in the 50-55% range with pulmonary hypertension with right-sided pressures in the range of 55-60 mmHg. She also has a question of a pulmonary mass and she is on high-flow oxygen. These comorbid conditions place her at a very higher than usual risk for her right hip operation. I am recommending that we continue the beta blockers and losartan prior to surgery. Cautious fluid administration is advised and optimal BP control perioperatively. I will check another troponin, but I suspect even if it is high given the circumstances, she can go ahead with the operation and the risk is higher than usual and this was explained to the patient and family in detail. Blood pressure today is 130/70, pulse rate is 86 per minute. There is JVD of 1 cm. No carotid bruit. S1-S2 heard normally. No significant murmurs. Lungs reveal scattered rhonchi with diminished breath sounds. Abdomen is soft. Lower extremities reveal diminished distal pulses. RECOMMENDATION: I am recommending that she can go ahead with her hip operation. Risk is higher than usual. Advised cautious fluid administration and optimal BP control and usage of beta lachelle preoperatively. We will continue to follow. MMODL / IJN: [id number] /
--- NOTE | 2017-08-26 10:56 | P.PN ---
Subjective Progress Note Date: 08/26/17 Principal diagnosis: COPD, lung mass Pulmonary consultation 08/25/2017 This is a very pleasant 81-year-old female who presents to the emergency department having fallen and fractured her right hip. She was apparently on the garage and fell on a piece of wood that was left there by her grand son. Anyway, the patient was admitted to the hospital for further evaluation and treatment. In the process of evaluating her, she had a chest x-ray which showed a mass. A computed tomography scan was done and confirmed the mass. She is a former smoker. In addition to all this, she's been complaining of some shortness of breath chest congestion cough. Coughing up some minimal phlegm. She's been seeing Dr. Jimi Torres her primary doctor. He gave her 2 different courses of antibiotics. I had a long chat today with the patient and the patient's family. I told him that she should proceed with the hip repair. We could see her once she is out of the hospital for evaluation pulmonary function testing and a PET scan. At that point we can make a decision about what to do next. Surgery. Awaiting a couple days because the patient was on Plavix for a stent that was placed in her lower extremity. Her chest x-rays and labs were reviewed by myself. Progress note dictated 08/26/2017 The patient is seen again today in follow-up on the surgical floor. She is resting quite comfortably in bed. She is breathing easier today as compared to yesterday. She has been initiated on IV Solu-Medrol and bronchodilators. Still requiring 15 L high flow nasal cannula and maintaining good O2 saturations in the mid 90s. She's been afebrile. Hemodynamically stable. He count 21.3. Hemoglobin 14.8. Creatinine 0.68. ProBNP 5190, troponin 0.088, 0.0986. The plan is for surgical repair of her right hip today. Objective - Vital Signs Vital signs: Vital Signs Temp 98.6 F 08/26/17 08:15 Pulse 86 08/26/17 08:15 Resp 15 08/26/17 08:15 BP 131/63 08/26/17 08:15 Pulse Ox 97 08/26/17 08:15 Intake & Output 08/25/17 08/26/17 08/26/17 18:59 06:59 18:59 Intake Total 877 1597 Output Total 300 1140 Balance 577 457 Weight 61.235 kg Intake: IV 400 Sodium Chloride 0.9% 1, 400 000 ml @ 50 mls/hr IV . Q20H [facility]SHA Rx#:[id number] Intake, IV Titration 1027 Amount Sodium Chloride 0.9% 1, 1027 000 ml @ 50 mls/hr IV . Q20H MARSHA Rx#:[id number] Oral 477 570 Output: Urine 300 1140 Other: Voiding Method Indwelling Catheter Indwelling Catheter # Voids 1 # Bowel Movements 0 - Exam GENERAL EXAM: Alert, fairly comfortable in no apparent distress. HEAD: Normocephalic. EYES: Normal reaction of pupils, equal size. NOSE: Clear with pink turbinates. THROAT: No erythema or exudates. NECK: No masses, no JVD. CHEST: No chest wall deformity. LUNGS: Equal air entry with faint end expiratory wheeze bilaterally. Diminished. CVS: S1 and S2 normal with no audible murmur, regular rhythm. ABDOMEN: No hepatosplenomegaly, normal bowel sounds, no guarding or rigidity. SPINE: No scoliosis or deformity SKIN: No rashes CENTRAL NERVOUS SYSTEM: No focal deficits, tone is normal in all 4 extremities. EXTREMITIES: Shortening and external rotation of the right lower extremity. There is no peripheral edema. No clubbing, no cyanosis. Peripheral pulses are intact. - Labs CBC & Chem 7: 08/26/17 06:45 08/26/17 06:45 Labs: Abnormal Lab Results - Last 24 Hours (Table) 08/25/17 08/26/17 08/26/17 Range/Units 19:13 06:45 06:45 WBC 21.3 H (3.8-10.6) k/uL RDW 15.6 H (11.5-15.5) % Plt Count 575 H (150-450) k/uL Neutrophils # 19.4 H (1.3-7.7) k/uL BUN 26 H (7-17) mg/dL Glucose 161 H (74-99) mg/dL Troponin I 0.088 H* (0.000-0.034) ng/mL 08/26/17 Range/Units 06:45 WBC (3.8-10.6) k/uL RDW (11.5-15.5) % Plt Count (150-450) k/uL Neutrophils # (1.3-7.7) k/uL BUN (7-17) mg/dL Glucose (74-99) mg/dL Troponin I 0.096 H* (0.000-0.034) ng/mL Microbiology - Last 24 Hours (Table) 08/25/17 12:45 Urine Culture - Preliminary Urine,Catheterized Assessment and Plan Assessment: Assessment Status post fall with right hip fracture. History of hypertension History of breast cancer, treated with left mastectomy as well as radiation and chemotherapy Recent upper respiratory tract infection treated with 2 courses of antibiotics Previous history of tobacco use, rule out COPD Chest x-ray and computed tomography scan findings suggesting significant abnormalities in the left chest consistent with either bronchogenic carcinoma and/or recurrent metastatic breast cancer. Status post cardiac catheterization with stent placement Peripheral vascular occlusive disease with previous stent placement Shortness of breath, rule out pulmonary embolism Plan: The patient was seen and evaluated by Dr. Jensen. VQ scan was reviewed. No plans for CT angiogram. She is cleared from the pulmonary standpoint for repair of her right hip today. She'll remain on bronchodilators, IV Solu- Medrol and high flow nasal cannula. Again, we plan to workup the left lung mass in the outpatient setting. She'll need a PET scan and pulmonary function testing. Followed by most likely bronchoscopy with biopsies. These things will be done once the patient's recovered from her hip surgery. We will continue to follow make further recommendations based on her clinical status. I, the cosigning physician, performed a history & physical examination of the patient. Lungs sounds bilateral end expiratory wheeze. Few scattered rhonchi.. Maintaining good O2 saturations in the 90s on 15 L of high flow nasal cannula. I discussed the assessment and plan of care with my nurse practitioner , Do Corona. I attest to the above note as dictated by her.
[2017-08-26] MEDS ORDERED: SUCCINYLCHOLINE CHLORIDE 100 MG/5 ML SYR IV ONE (12:29)
[2017-08-26] MEDS ORDERED: NEOSTIGMINE 1 MG/ML 10 ML VIAL ONE (12:29)
[2017-08-26] MEDS ORDERED: ROCURONIUM BROMIDE 10 MG/ML 10 ML VIAL IV ONE (12:29)
[2017-08-26] MEDS ORDERED: GLYCOPYRROLATE 0.2 MG/ML 2 ML VIAL ONE (12:29)
[2017-08-26] MEDS ORDERED: ONDANSETRON 4 MG/2 ML VIAL ONE (12:29)
[2017-08-26] MEDS ORDERED: ALBUTEROL INHALER 60 PUFF/8 GM INHALER INHALATION ONE (12:29)
[2017-08-26] MEDS ORDERED: LIDOCAINE 1% INJ 10MG/ML (20 ML MDV) ONE (12:29)
[2017-08-26] MEDS ORDERED: MIDAZOLAM 2 MG/2 ML VIAL ONE (12:29)
[2017-08-26] MEDS ORDERED: fentaNYL (PF) 50 MCG/ML 2 ML AMP ONE (12:29)
[2017-08-26] MEDS ORDERED: FUROSEMIDE 10 MG/ML 2 ML VIAL ONE (12:29)
[2017-08-26] MEDS ORDERED: SODIUM CHLORIDE 0.9% 50 ML with ceFAZolin 2,000 MG IV ONE ×2 (12:49)
[2017-08-26] MEDS ORDERED: IV FLUID CONTINUATION 300 ML IV ONE (12:49)
[2017-08-26] MEDS: SODIUM CHLORIDE 0.9% 1,000 ML IV SCH (13:03)
[2017-08-26] MEDS ORDERED: CLINDAMYCIN 1,800 MG in SODIUM CHLORIDE 0.9% IRRIGATIO 3,000 ML IRRIGATION ONE (13:04)
[2017-08-26] MEDS ORDERED: LACTATED RINGERS 1,000 ML IV ONE (13:17)
--- NOTE | 2017-08-26 13:46 | P.OP ---
Date of Procedure: 08/26/17 Preoperative Diagnosis: Displaced right hip femoral neck fracture Postoperative Diagnosis: Displaced right hip femoral neck fracture Procedure(s) Performed: Right hip hemiarthroplasty Implants: 1. Depuy Corail press-fit femoral stem KA size 12 standard collar 2. Depuy metallic femoral head 43 mm with a -3mm tapered spacer Anesthesia: LONA Surgeon: Abelino Anne Refueling Rampman #1: Abner Arauz Estimated Blood Loss (ml): 75 Pathology: other (Femoral head) Condition: stable Disposition: PACU Indications for Procedure: 81-year-old patient seen with displaced right hip femoral neck fracture. I recommended right hip hemiarthroplasty. I discussed the procedure, risks, complications and recovery. Patient was agreeable. Consent was obtained. Medical and cardiac clearances were obtained. Operative Findings: See description of procedure Description of Procedure: The patient was taken to the operative suite. The patient underwent a general anesthetic by the department of anesthesia. The patient received preoperative IV antibiotics. The patient was placed into a lateral position. The right hip was prepped and draped in the normal sterile orthopedic fashion. A standard posterior lateral incision was made sharply through skin. Dissection taken down through subcu soft tissues down to the iliotibial band. I incised the length. We then into the rotator the extremity exposing the short external rotators. Those were tagged and incised. I now made a T-incision through the posterior capsule. This exposed the fractured femoral neck. The residual neck was excised. The fractured femoral head was was extracted. We templated that will 43 mm. I now began serial broaching working with to a size 12 which gave us good rotational stability. I now calcar planed. Trialed a -3 neck with a 43 mm endoprosthetic trial femoral head. The hip was now reduced. We had good stability of the hip with range of motion. Leg lengths appeared grossly equal. We now dislocated the hip. All trial components were removed. I irrigated the joint and wound with pulse lavage mechanical irrigation. I now introduced our implant tapping it down with good bite and purchase noted. I now introduced the 43 mm endoprosthetic head with a -3 tapered spacer. It was tapped into position and secured. I now reduce the hip. We had good stability of the hip. The wound was again irrigated with pulse lavage mechanical irrigation. The posterior capsule was repaired with #1 Vicryl. The short external rotators were repaired #1 Vicryl. The iliotibial band was repaired with #1 Vicryl. The subcu soft tissues were repaired in layers with 2-0 Vicryl. The skin is proximal skin bandar. We applied sterile dressings. The patient was awakened, transferred to a bed and recovery stable condition. Jonas ALMONTE assisted procedure.
[2017-08-26] MEDS ORDERED: MAGNESIUM HYDROXIDE 2,400 MG/10 ML CUP PO PRN (13:55)
[2017-08-26] MEDS ORDERED: HYDROcodone/APAP 5-325MG 1 EACH TAB PO PRN (13:55)
[2017-08-26] MEDS ORDERED: ALBUTEROL NEBULIZED 2.5 MG/3 ML INHALATION ONE (14:13)
[2017-08-26] MEDS: MORPHINE SULFATE 4 MG/ML SYRINGE IVP ONE ×2 (14:40→14:46)
[2017-08-26] MEDS: LEVOFLOXACIN 500MG-D5W PMX 500 MG in DEXTROSE/WATER 1 100ML.BAG IVPB SCH (15:18)
--- NOTE | 2017-08-26 15:30 | XR ---
EXAMINATION TYPE: XR Hip Limited RT DATE OF EXAM: 08/26/2017 CLINICAL HISTORY: Right hip pain and osteoarthritis. TECHNIQUE: Single AP portable view of right hip is obtained immediately postoperatively. COMPARISON: None. FINDINGS: Metallic hardware from right hip arthroplasty is seen and appears satisfactory in alignment and position. There is evidence of recent surgery with subcutaneous gas noted. Vertical skin staple s are also seen. IMPRESSION: Metallic hardware from right hip arthroplasty is satisfactory in position.
--- NOTE | 2017-08-26 16:16 | XR ---
EXAMINATION TYPE: XR chest 1V portable DATE OF EXAM: 08/26/2017 COMPARISON: 08/25/2017 HISTORY: Hypoxemia TECHNIQUE: Single frontal view of the chest is obtained. FINDINGS: There is improved aeration of right lung base, however an ill-defined right basilar opacit y does remain. There is similar-appearing right upper lobe consolidation and worsening left midlung c onsolidation as well as retrocardiac consolidation. Trace pericardial effusions are suspected as ther e is slight blunting of the costophrenic angles. Cardia mediastinal silhouette is stable. Surgical cl ips are noted within the left breast soft tissues. There is diffuse osseous demineralization. No siza ble pneumothorax. IMPRESSION: Multifocal bilateral consolidations suspicious for pneumonia and/or confluent pulmonary edema. There is improved aeration of the right lung base however there is increased confluence in the left midlung and retrocardiac airspace.
[2017-08-26 17:11] LABS: ABG Base Excess 0.8 mmol/L; ABG HCO3 26 mmol/L (21-25); ABG Oxygen Saturation 95.7 % (94-97); ABG PCO2 43 mmHg (35-45); ABG PH 7.39 (7.35-7.45); ABG PO2 79 mmHg (83-108); ABG TCO2 27 mmol/L (19-24)
[2017-08-26] MEDS: ceFAZolin IN SWFI 2 GM/20 ML SYRINGE IVP SCH (17:30)
--- NOTE | 2017-08-26 19:46 | PN ---
PROGRESS NOTE DATE OF SERVICE: 08/26/2017 This 81-year-old woman who was admitted with significant fracture on the right side, also had significant lung lesions also. Dr. Jensen is recommended to follow up in the outpatient setting. Patient also multiple cardiac issues also, but the ejection fraction 50-55%. The patient was evaluated by Dr. Anne and the patient underwent right hip hemiarthroplasty by Dr. Anne. The patient does have some hypoxia today and chest x-ray was ordered by me which showed possibly some bilateral consolidation of pulmonary edema. The patient is being closely monitored. PAST MEDICAL HISTORY: Reviewed. REVIEW OF SYSTEM: Cardiovascular: No angina or palpitations. Respiration: As mentioned earlier. GI as mentioned earlier. : No dysuria. CENTRAL NERVOUS SYSTEM: No numbness or weakness. MEDICATIONS: Current medications are reviewed and include: 1. Tylenol 650 q.6h p.r.n. 2. Logan 5 mg q.4h p.r.n. 3. DuoNeb. 4. Norvasc. 5. Symbicort 160/4.5 2 puffs b.i.d. 6. Plavix 75 mg daily. 7. Heparin 5000 subcu b.i.d. 8. Apresoline. 9. Levaquin 500 mg IV daily. 10.Milk of magnesia. 11.Reglan. 12.Lopressor. 14.Zofran. 15.Zoloft. 16.Restoril. PHYSICAL EXAM: GENERAL: Patient is alert, oriented x2. VITAL SIGNS: The pulse is 81. Blood pressure 140/66. Respiratory rate normal, pulse ox 97% on . HEENT: Conjunctivae normal. Oral mucosa moist. NECK: No jugular venous distention. No carotid bruit. No lymph node enlargement. CARDIOVASCULAR: S1, S2 muffled. RESPIRATION: Breath sounds diminished in the bases. Bilateral scattered rhonchi and crackles. ABDOMEN: Soft, nontender. No mass palpable. LEGS: Status post surgery on the right side. CENTRAL NERVOUS SYSTEM: The patient is mildly confused at this time. LABORATORY DATA: WBC 21.3. Sodium 138 and troponin 0.09. BNP is 5190. ASSESSMENT: 1. Status post right femoral neck fracture, possible pathologic fracture. 2. Possible left hilar mass with left lower lobe mass with possible lung cancer with breast cancer with metastasis. 3. Hypoxia with acute hypoxic respiratory failure. 4. Possible pneumonia. 5. Chronic obstructive pulmonary disease acute exacerbation with acute hypoxic respiratory failure. 6. Increased WBC. 7. Increased random blood sugar. 8. Increased platelets. 9. History of nicotine dependence. 10.History of cholecystectomy. 11.History of coronary artery disease stent. 12.History of hernia repair. 13.History of depression. 14.FULL CODE. RECOMMENDATIONS AND DISCUSSION: Recommend to continue current medications, continue to monitor. Symptomatic treatment. Otherwise I will optimize the bronchodilators further. I would also recommend continue the antibiotics and also recommend scheduled breathing treatments. I would also recommend scheduled breathing treatments. I would also recommend an ABG on a STAT basis. We will closely monitor with Pulmonary who is also already on the case. I would also recommend infectious disease evaluation as well. As far as vomiting is concerned, I would recommend Protonix and symptomatic treatment. The prognosis is guarded because of multiple complex medical issues. Further recommendations to follow. See orders for details. MMODL / IJN: [id number] / MTDD
[2017-08-26] MEDS: SENNOSIDES-DOCUSATE SODIUM 1 EACH TAB PO SCH (20:15)
[2017-08-26] MEDS: amLODIPine 5 MG TAB PO SCH (20:15)
[2017-08-26] MEDS: SERTRALINE 50 MG TAB PO SCH (20:15)
[2017-08-26] MEDS: IPRATROPIUM-ALBUTEROL 3 ML NEB INHALATION SCH (20:48)
[2017-08-26] MEDS: PANTOPRAZOLE 40 MG/10 ML VIAL IVP SCH (20:57)
[2017-08-26] MEDS: HYDROcodone/APAP 5-325MG 1 EACH TAB PO PRN (21:15)
[2017-08-27] MEDS: ceFAZolin IN SWFI 2 GM/20 ML SYRINGE IVP SCH (00:16)
[2017-08-27 06:58] LABS: Anion Gap 12 mmol/L; Blood Urea Nitrogen 33 mg/dL (7-17); Calcium 9.1 mg/dL (8.4-10.2); Carbon Dioxide 25 mmol/L (22-30); Chloride 100 mmol/L (98-107); Glucose 157 mg/dL (74-99); Sodium 137 mmol/L (137-145)
[2017-08-27 07:19] LABS: Basophils # (A) 0.1 k/uL (0-0.2); Basophils % (A) 0 %; Eosinophils % (A) 0 %; HCT 41.3 % (34.0-46.0); HGB 13.8 gm/dL (11.4-16.0); Lymphocytes # (A) 1.3 k/uL (1.0-4.8); Lymphocytes % (A) 7 %; MCH 29.5 pg (25.0-35.0); MCHC 33.4 g/dL (31.0-37.0); MCV 88.2 fL (80.0-100.0); Mean Platelet Volume 8.3; Monocytes # (A) 0.9 k/uL (0-1.0); Monocytes % (A) 6 %; Neutrophils # (A) 14.9 k/uL (1.3-7.7); Neutrophils % (A) 86 %; Platelet Count 507 k/uL (150-450); RBC 4.69 m/uL (3.80-5.40); RDW 15.7 % (11.5-15.5); WBC 17.3 k/uL (3.8-10.6)
[2017-08-27] MEDS: IPRATROPIUM-ALBUTEROL 3 ML NEB INHALATION SCH ×4 (08:34→19:27)
[2017-08-27] MEDS: SYMBICORT 160-4.5 MCG INHALER INHALATION SCH ×2 (08:35→19:27)
[2017-08-27] MEDS: PANTOPRAZOLE 40 MG/10 ML VIAL IVP SCH ×2 (09:03→20:42)
[2017-08-27] MEDS: HEPARIN SODIUM,PORCINE 5,000 UNIT/ML 1 ML VIAL SQ SCH ×2 (09:03→20:42)
[2017-08-27] MEDS: HYDROcodone/APAP 5-325MG 1 EACH TAB PO PRN (09:04)
[2017-08-27] MEDS: LEVOFLOXACIN 500 MG TAB PO SCH (09:05)
[2017-08-27] MEDS: METOPROLOL TARTRATE 50 MG TAB PO SCH ×2 (09:05→20:44)
[2017-08-27] MEDS: LOSARTAN-HCTZ 50-12.5 MG 1 EACH TAB PO SCH (09:05)
[2017-08-27] MEDS ORDERED: FUROSEMIDE 10 MG/ML 2 ML VIAL IV ONE (09:13)
--- NOTE | 2017-08-27 09:14 | P.PN ---
Subjective Progress Note Date: 08/27/17 Principal diagnosis: Shortness of breath, abnormal chest x-ray and CAT scan Progress note dated 08/27/2017 The patient did have her hip surgery done yesterday. She is postop day #1. We placed her on IV Solu-Medrol and bronchodilators. Her ventilation perfusion lung scan was intermediate probability. Her chest x-ray shows diffuse bilateral is consistent with fluid overload and/or pneumonia. We'll make sure she is on appropriate antibiotics. Clinically she is doing okay. We'll have to watch her very closely. I am concerned about her. Physical therapy is working with her. N-terminal proBNP was elevated at 5190. Troponins were a bit elevated. Objective - Vital Signs Vital signs: Vital Signs Temp 99.1 F 08/27/17 07:34 Pulse 87 08/27/17 08:51 Resp 16 08/27/17 07:35 BP 153/72 08/27/17 07:34 Pulse Ox 95 08/27/17 08:35 Intake & Output 08/26/17 08/27/17 08/27/17 18:59 06:59 18:59 Intake Total 651 800 Output Total 575 700 Balance 76 100 Intake: IV 651 400 Sodium Chloride 0.9% 1, 400 000 ml @ 50 mls/hr IV . Q20H [facility] Rx#:[id number] Intake, IV Titration 400 Amount Sodium Chloride 0.9% 50 400 ml As IV .STK-MED ONE with ceFAZolin 2,000 mg Rx#:[id number] Output: Urine 500 700 Uretheral (Michael) 400 Estimated Blood Loss 75 Other: Voiding Method Indwelling Catheter Indwelling Catheter Indwelling Catheter # Voids 3 - Exam No acute distress, oriented 3. High flow nasal O2 in place. HEENT examination is grossly unremarkable. Mucous membranes are moist. No oral lesions. Neck supple. Full range of motion. No adenopathy thyromegaly or neck vein distention. Cardiovascular examination reveals regular rhythm rate. S1-S2 normal. No S3 or S4. No discernible murmur noted. Lungs reveal diffuse bilateral rhonchi. A few scattered crackles. Some mild high-pitched wheezes are noted. Breath sounds are equal bilaterally. Abdomen soft bowel sounds are heard. No masses or tenderness. Extremities are intact. No cyanosis clubbing or edema. Skin is without rash or lesion. Neurologic examination is brief but nonfocal. - Labs CBC & Chem 7: 08/27/17 06:22 08/27/17 06:22 Labs: Abnormal Lab Results - Last 24 Hours (Table) 08/26/17 08/26/17 08/26/17 Range/Units 06:45 06:45 16:04 WBC (3.8-10.6) k/uL RDW (11.5-15.5) % Plt Count (150-450) k/uL Neutrophils # (1.3-7.7) k/uL ABG pO2 (83-108) mmHg ABG HCO3 (21-25) mmol/L ABG Total CO2 (19-24) mmol/L BUN (7-17) mg/dL Glucose (74-99) mg/dL Troponin I 0.096 H* 0.080 H* (0.000-0.034) ng/mL CA 15-3 Antigen 56.2 H (0.0-32.3) U/mL 08/26/17 08/27/17 08/27/17 Range/Units 17:00 06:22 06:22 WBC 17.3 H (3.8-10.6) k/uL RDW 15.7 H (11.5-15.5) % Plt Count 507 H (150-450) k/uL Neutrophils # 14.9 H (1.3-7.7) k/uL ABG pO2 79 L (83-108) mmHg ABG HCO3 26 H (21-25) mmol/L ABG Total CO2 27 H (19-24) mmol/L BUN 33 H (7-17) mg/dL Glucose 157 H (74-99) mg/dL Troponin I (0.000-0.034) ng/mL CA 15-3 Antigen (0.0-32.3) U/mL Microbiology - Last 24 Hours (Table) 08/25/17 12:45 Urine Culture - Final Urine,Catheterized 08/25/17 12:11 Blood Culture - Preliminary Blood No Growth after 24 hours Assessment and Plan Assessment: Assessment Status post fall with right hip fracture. Diffuse bilateral infiltrates, which may relate to fluid and/or pneumonia. History of hypertension History of breast cancer, treated with left mastectomy as well as radiation and chemotherapy Recent upper respiratory tract infection treated with 2 courses of antibiotics Previous history of tobacco use, rule out COPD Chest x-ray and computed tomography scan findings suggesting significant abnormalities in the left chest consistent with either bronchogenic carcinoma and/or recurrent metastatic breast cancer. Status post cardiac catheterization with stent placement Peripheral vascular occlusive disease with previous stent placement Shortness of breath, rule out pulmonary embolism Plan: Plan dated 08/25/2017 The patient will have a VQ scan to rule out pulmonary embolism. I would've preferred a CT angiogram but she had a CT of the chest with contrast yesterday. We may have to do a CT angiogram tomorrow if there is any question about pulmonary embolism as part of her shortness of breath. Her d-dimer was elevated at 2.78. I did explain to the patient that she should go ahead and proceed with the repair of the right hip. The lung abnormalities can be worked up as outpatient. She will certainly need a pulmonary function test and a PET scan. Additional recommendations and suggestions are forthcoming. For her current situation, we'll make sure she is on oxygen therapy bronchodilators Symbicort and some steroids. Critical care time is 32 minutes. Plan dated 08/27/2017 Labs x-rays a medications will all be reviewed. Chest x-ray shows diffuse bilateral infiltrates. This could relate to fluid overload and/or pneumonia. White count of 17.3 hemoglobin and hematocrit was stable. Platelet count was okay. Blood gases show a PaO2 of 79 a PaCO2 of 43 and a pH of 7.39. That was on 100%. Sodium potassium chloride CO2 all normal BUN and creatinine were 33 and 0.70. Troponins were 0.088 0.096 0.080. N-terminal proBNP was 5190. The patient is on [facility] with DuoNeb, Symbicort 160/4.5, 2 puffs twice a day Lasix 20 mg IV push was given one time and the patient was placed on prednisone 30 mg a day. Time with Patient: Less than 30
--- NOTE | 2017-08-27 09:47 | CONS ---
CONSULTATION This lady underwent right hip surgery yesterday uneventfully. She is doing better today, appears to be somewhat prerenal. She has history of diastolic dysfunction, pulmonary hypertension with preserved LV function. Her BUN, creatinine profile suggests some prerenal azotemia. She is wheezing a little bit. Vital signs are stable. S1-S2 heard normally. Short systolic murmur noted. Lungs reveal scattered rhonchi. I am recommending a breathing treatment, same medications, will continue 50 mL normal saline IV fluids. Her medications have been resumed and she appears to be reasonably stable. MMODL / IJN: [id number] /
[2017-08-27] MEDS: CLOPIDOGREL 75 MG TAB PO SCH (10:29)
[2017-08-27] MEDS: predniSONE 10 MG TAB PO SCH (10:30)
[2017-08-27] MEDS: SODIUM CHLORIDE 0.9% 1,000 ML IV SCH (10:34)
--- NOTE | 2017-08-27 12:37 | P.PN ---
Subjective Progress Note Date: 08/27/17 Principal diagnosis: s/p right hip hemiarthroplasty Patient is doing well, pain is controlled. She is up in chair eating lunch. She denies any acute changes in pain involving the hip. Objective - Vital Signs Vital signs: Vital Signs Temp 99.1 F 08/27/17 07:34 Pulse 82 08/27/17 11:56 Resp 16 08/27/17 07:35 BP 153/72 08/27/17 07:34 Pulse Ox 95 08/27/17 08:35 Intake & Output 08/26/17 08/27/17 08/27/17 18:59 06:59 18:59 Intake Total 651 800 Output Total 575 700 Balance 76 100 Intake: IV 651 400 Sodium Chloride 0.9% 1, 400 000 ml @ 50 mls/hr IV . Q20H [facility] Rx#:[id number] Intake, IV Titration 400 Amount Sodium Chloride 0.9% 50 400 ml As IV .STK-MED ONE with ceFAZolin 2,000 mg Rx#:[id number] Output: Urine 500 700 Uretheral (Michael) 400 Estimated Blood Loss 75 Other: Voiding Method Indwelling Catheter Indwelling Catheter Indwelling Catheter # Voids 3 - Exam Right lower extremity: Incision is clean, dry, and intact. Era are in good position. There is minimal soft tissue swelling and ecchymosis surrounding the medial and lateral aspects of the incision. Calf is soft, no tenderness with palpation. Plantar flexion, dorsiflexion, EHL, FHL are intact. Sensory exam to light touch throughout the extremity is intact, dorsal pedis pulses 2+. - Labs CBC & Chem 7: 08/27/17 06:22 08/27/17 06:22 Labs: Abnormal Lab Results - Last 24 Hours (Table) 08/26/17 08/26/17 08/27/17 Range/Units 16:04 17:00 06:22 WBC 17.3 H (3.8-10.6) k/uL RDW 15.7 H (11.5-15.5) % Plt Count 507 H (150-450) k/uL Neutrophils # 14.9 H (1.3-7.7) k/uL ABG pO2 79 L (83-108) mmHg ABG HCO3 26 H (21-25) mmol/L ABG Total CO2 27 H (19-24) mmol/L BUN (7-17) mg/dL Glucose (74-99) mg/dL Troponin I 0.080 H* (0.000-0.034) ng/mL 08/27/17 Range/Units 06:22 WBC (3.8-10.6) k/uL RDW (11.5-15.5) % Plt Count (150-450) k/uL Neutrophils # (1.3-7.7) k/uL ABG pO2 (83-108) mmHg ABG HCO3 (21-25) mmol/L ABG Total CO2 (19-24) mmol/L BUN 33 H (7-17) mg/dL Glucose 157 H (74-99) mg/dL Troponin I (0.000-0.034) ng/mL Microbiology - Last 24 Hours (Table) 08/25/17 12:45 Urine Culture - Final Urine,Catheterized 08/25/17 12:11 Blood Culture - Preliminary Blood No Growth after 24 hours Assessment and Plan Plan: Assessment: 1. Postop day 1 status post right hip hemiarthroplasty Plan: Patient is doing fairly well at this time, continue to work on daily physical therapy with walker ambulation Pain control, continue use of oral medication GI and DVT prophylaxis, we did resume her Plavix Other medical specialty recommendations We'll continue to follow during inpatient stay Time with Patient: Less than 30
[2017-08-27] MEDS: ACETAMINOPHEN TAB 325 MG TAB PO PRN (14:34)
--- NOTE | 2017-08-27 20:35 | PN ---
PROGRESS NOTE DATE OF SERVICE: 08/27/2017 This 81-year-old woman was admitted after femoral neck surgery, had significant difficulty with breathing yesterday. A chest x-ray done yesterday showed bilateral lesions. ABG showed pH of 7.39 and PO2 was 79 on 100% FiO2. Oxygen is being titrated off. CA-15-3 antigen is 56.8. Troponin is indeterminate. PHYSICAL EXAM: Patient is alert, oriented x3. The pulse is 84, blood pressure 153/72, respirations 16, temperature 99.1, pulse ox 94% on 2 L. HEENT: Conjunctivae normal. Oral mucosa moist. NECK: No JVD. No carotid bruit. No lymph node enlargement. CARDIOVASCULAR: S1, S2. RESPIRATORY: Diminished breath sounds at the bases. A few scattered rhonchi and crackles. ABDOMEN: Soft, nontender. LEGS: Status post surgery. NERVOUS SYSTEM: No focal deficits. LABS: WBC 17.3. ASSESSMENT: 1. Status post right femoral neck fracture, possibly pathological fracture, status post right hip hemiarthroplasty. 2. Left hilar mass with left lower lobe mass, possible lung cancer with breast cancer metastasis. 3. Acute hypoxic respiratory failure secondary to chronic obstructive pulmonary disease acute exacerbation. 4. Possible pneumonia. 5. Increased WBC. 6. Increased random blood sugar. 7. Increased platelets. 8. History of nicotine dependence. 9. History of cholecystectomy. 10.History of CAD, stent. 11.History of hernia repair. 12.History of depression. 13.FULL CODE. RECOMMENDATIONS: Recommend continue current medication, continue symptomatic treatment, continue the bronchodilators, continue the rest of medications. Closely follow with Pulmonary. Guarded prognosis because of multiple complex medical issues. Further recommendations to follow. Definitive treatment and biopsies as an outpatient. MMODL / IJN: [id number] /
[2017-08-27] MEDS: SERTRALINE 50 MG TAB PO SCH (20:44)
[2017-08-27] MEDS: SENNOSIDES-DOCUSATE SODIUM 1 EACH TAB PO SCH (20:44)
[2017-08-27] MEDS: amLODIPine 5 MG TAB PO SCH (20:44)
--- NOTE | 2017-08-28 04:01 | CONS ---
CONSULTATION DATE OF SERVICE: 08/27/2017 REASON FOR CONSULTATION: Possible pneumonia. HISTORY OF PRESENT ILLNESS: The patient is an 81-year-old female who apparently did have a chronic cough that has been going on for almost a month and has been treated in the outpatient setting by her primary care physician on 2 different courses of antibiotic. The last one was antibiotic , however, the patient family not sure about the name. While she was taking her second course the patient did have a fall at home for which the patient has been brought to the hospital. The patient noted to have suspected pathological fracture of the right femoral neck. The patient also had a chest x-ray which showed left hilar mass felt to be a otherwise, for which the patient did have a CT of the chest which did show left hilar mass and left lower lobe mass-like infiltrate suspicious for primary malignancy and large subcarinal lymph node. The patient has been evaluated by orthopedic surgery and the patient is status post right hip hemiarthroplasty. The patient did have a chest x-ray obtained yesterday afternoon which was reported for multifocal bilateral consolidations. The patient has pneumonia, excluded pulmonary edema that prompted this infectious disease consultation. The patient is currently on Levaquin for antibiotic treatment, though has tolerated Cefazolin without any problem. The patient continued complaining of cough that seemed to be chronic and going on for about a month. The patient said the cough is mostly congested, however, she is unable to cough it up. She has been complaining of some lower rib cage chest pain about 5/10, with no radiation. Some nausea but no vomiting or any significant diarrhea. The patient currently complains of pain to the right hip pain almost 10/10, and no radiation. She did have a laceration to the right elbow and right knee from her fall. However, during this hospital stay no fever has been recorded. The patient who did have white count of 17.6 on admission, was up to 26.5 on the and down to 17.3 today in a patient who has not have received any steroids during this admission except in heel. REVIEW OF SYSTEMS: CONSTITUTIONAL: Positive for weakness but no high-grade fever. EYES: No complaint. ENT: No complaint. RESPIRATORY: As per HPI. CARDIOVASCULAR: No complaint. GENITOURINARY: The patient did have some incontinence of urine. Currently has Michael catheter: GI: As per HPI. MUSCULOSKELETAL: As per HPI. INTEGUMENTARY: As per HPI. PSYCHOLOGICAL: Complaining of some anxiety. ENDOCRINE: No complaint. NEUROLOGIC: No complaint. PAST MEDICAL HISTORY: Significant for depression, hypertension, hyperlipidemia, osteoarthritis, disease, left breast cancer. The patient did have peripheral arterial disease. PAST SURGICAL HISTORY: Adenoidectomy, appendectomy, cholecystectomy, heart catheterization, hernia repair, hysterectomy, tonsillectomy, stent to the left leg, left breast biopsy, left breast mastectomy with reconstructive surgery. SOCIAL HISTORY: Remote history of smoking. Rarely drinks. No drug use. FAMILY HISTORY: Mother had congestive heart failure and diabetes mellitus. ALLERGIES: PENICILLIN AND CODEINE. Tolerated without any problem. MEDICATION: Medications include the patient is currently on Tylenol, [place], DuoNeb, Xanax, Norvasc, Symbicort, Plavix, Hyzaar, heparin, Levaquin, milk of magnesia, Reglan, morphine sulfate, Narcan, Zofran, Protonix, prednisone, Zoloft and Restoril. EXAMINATION: Blood pressure 153/72 with a pulse of 84, temperature 99.1. She is 94% on 12 L nasal cannula. GENERAL DESCRIPTION: An elderly female up in the chair in no distress. No tachypnea or accessory muscle of respiration use. HEENT: Shows no pallor or scleral icterus. Oral mucosa is moist. NECK: Trachea central. No thyromegaly. LUNGS: Unlabored breathing. Decreased breath sounds. No wheeze or crackle. HEART: S1, S2. Regular rate. ABDOMEN: Soft, no tenderness. No guarding. No organomegaly. EXTREMITIES: No edema of feet. SKIN: Did have a laceration to the right elbow and the knee area without any cellulitis. NEUROLOGIC: Patient is awake, alert, oriented. Mood and affect normal. LABS: Hemoglobin is 13.8 with white count 17.3 yesterday. BUN of 33, creatinine 0.70. Electrolytes have been normal. was slightly elevated. Chest x-ray report as mentioned above. DIAGNOSTIC IMPRESSION AND PLAN: Patient presented to hospital with fall who did have a right hip fracture status post right hip hemiarthroplasty in a patient known to have a chronic cough, mostly congested but unable to bring any sputum up. Treated in the outpatient setting with multiple course of antibiotic therapy. However, CT suspicion mostly for a mass with hilar mass likely suspicious for malignancy. Clinically doubt a pneumonia in a patient who did not have any fever. The patient did have elevated white count, which could be related to trauma. The patient does have penicillin allergy which limits antibiotics that will be safe to use. PLAN: 1. We will keep the patient on Levaquin currently at 5 mg p.o. daily. 2. We will try to obtain sputum for Gram stain culture and sensitivity. 3. We will follow up on the clinical condition and culture to further adjust medication if needed. Family was present at bedside. Questions were answered. MMODL / IJN: [id number] /
[2017-08-28] MEDS: SODIUM CHLORIDE 0.9% 1,000 ML IV SCH ×3 (05:20→17:58)
[2017-08-28 06:56] LABS: Basophils % (A) 0 %; Eosinophils # (A) 0.1 k/uL (0-0.7); Eosinophils % (A) 1 %; HCT 42.1 % (34.0-46.0); HGB 13.9 gm/dL (11.4-16.0); Lymphocytes # (A) 1.3 k/uL (1.0-4.8); Lymphocytes % (A) 7 %; MCV 87.6 fL (80.0-100.0); Mean Platelet Volume 8.6; Monocytes # (A) 0.6 k/uL (0-1.0); Monocytes % (A) 4 %; Neutrophils # (A) 14.9 k/uL (1.3-7.7); Neutrophils % (A) 88 %; Platelet Count 482 k/uL (150-450); RBC 4.81 m/uL (3.80-5.40); RDW 15.5 % (11.5-15.5)
[2017-08-28] MEDS: SYMBICORT 160-4.5 MCG INHALER INHALATION SCH ×2 (06:56→18:42)
[2017-08-28] MEDS: IPRATROPIUM-ALBUTEROL 3 ML NEB INHALATION SCH ×4 (06:56→18:42)
[2017-08-28 07:04] LABS: Glucose,Whole Blood 151 mg/dL (75-99)
[2017-08-28 07:11] LABS: Anion Gap 12 mmol/L; Blood Urea Nitrogen 33 mg/dL (7-17); Carbon Dioxide 26 mmol/L (22-30); Chloride 101 mmol/L (98-107); Glucose 138 mg/dL (74-99); Potassium 3.9 mmol/L (3.5-5.1); Sodium 139 mmol/L (137-145)
[2017-08-28] MEDS: PANTOPRAZOLE 40 MG/10 ML VIAL IVP SCH ×2 (09:16→23:12)
[2017-08-28] MEDS: HEPARIN SODIUM,PORCINE 5,000 UNIT/ML 1 ML VIAL SQ SCH ×2 (09:16→23:13)
[2017-08-28] MEDS: predniSONE 10 MG TAB PO SCH (09:17)
[2017-08-28] MEDS: LEVOFLOXACIN 500 MG TAB PO SCH (09:17)
[2017-08-28] MEDS: LOSARTAN-HCTZ 50-12.5 MG 1 EACH TAB PO SCH (09:17)
[2017-08-28] MEDS: METOPROLOL TARTRATE 50 MG TAB PO SCH ×2 (09:17→23:13)
[2017-08-28] MEDS: CLOPIDOGREL 75 MG TAB PO SCH (09:17)
[2017-08-28] MEDS: BENZOCAINE/MENTHOL LOZENG 1 EACH LOZENGE MUCOUS MEM PRN ×2 (09:22→23:12)
[2017-08-28] MEDS: ACETAMINOPHEN TAB 325 MG TAB PO PRN ×2 (09:23→23:10)
--- NOTE | 2017-08-28 10:04 | P.PN ---
Subjective Progress Note Date: 08/28/17 Principal diagnosis: s/p right hip hemiarthroplasty Patient is doing well, pain is controlled. She denies any acute changes in pain involving the hip. Objective - Vital Signs Vital signs: Vital Signs Temp 98.9 F 08/28/17 07:37 Pulse 89 08/28/17 07:37 Resp 20 08/28/17 07:37 BP 149/65 08/28/17 07:37 Pulse Ox 94 L 08/28/17 07:37 Intake & Output 08/27/17 08/28/17 08/28/17 18:59 06:59 18:59 Intake Total 400 800 237 Output Total 600 600 Balance -200 200 237 Weight 62.5 kg Intake: IV 800 Sodium Chloride 0.9% 1, 800 000 ml @ 50 mls/hr IV . Q20H [facility] Rx#:[id number] Intake, IV Titration 400 Amount Sodium Chloride 0.9% 50 400 ml As IV .STK-MED ONE with ceFAZolin 2,000 mg Rx#:[id number] Oral 237 Output: Urine 600 600 Other: Voiding Method Indwelling Catheter Indwelling Catheter - Exam Right lower extremity: Incision is clean, dry, and intact. Era are in good position. There is minimal soft tissue swelling and ecchymosis surrounding the medial and lateral aspects of the incision. Calf is soft, no tenderness with palpation. Plantar flexion, dorsiflexion, EHL, FHL are intact. Sensory exam to light touch throughout the extremity is intact, dorsal pedis pulses 2+. - Labs CBC & Chem 7: 08/28/17 06:18 08/28/17 06:18 Labs: Abnormal Lab Results - Last 24 Hours (Table) 08/28/17 08/28/17 08/28/17 Range/Units 06:18 06:18 07:02 WBC 17.0 H (3.8-10.6) k/uL Plt Count 482 H (150-450) k/uL Neutrophils # 14.9 H (1.3-7.7) k/uL BUN 33 H (7-17) mg/dL Glucose 138 H (74-99) mg/dL POC Glucose (mg/dL) 151 H (75-99) mg/dL Microbiology - Last 24 Hours (Table) 08/25/17 12:11 Blood Culture - Preliminary Blood No Growth after 48 hours Assessment and Plan Plan: Assessment: 1. Postop day #2 status post right hip hemiarthroplasty Plan: Patient is doing fairly well at this time, continue to work on daily physical therapy with walker ambulation Pain control, continue use of oral medication GI and DVT prophylaxis, we did resume her Plavix Other medical specialty recommendations We'll continue to follow during inpatient stay Time with Patient: Less than 30
[2017-08-28] MEDS: IPRATROPIUM-ALBUTEROL 3 ML NEB INHALATION PRN (11:04)
[2017-08-28 11:23] LABS: Glucose,Whole Blood 182 mg/dL (75-99)
[2017-08-28] MEDS ORDERED: RX INFO: IV CONTRAST WAS GIVEN 1 EACH MISC MISCELLANE PRN (14:05)
--- NOTE | 2017-08-28 15:22 | P.PN ---
Subjective Progress Note Date: 08/28/17 Principal diagnosis: Shortness of breath, abnormal chest x-ray and CAT scan Progress note dated 08/27/2017 The patient did have her hip surgery done yesterday. She is postop day #1. We placed her on IV Solu-Medrol and bronchodilators. Her ventilation perfusion lung scan was intermediate probability. Her chest x-ray shows diffuse bilateral is consistent with fluid overload and/or pneumonia. We'll make sure she is on appropriate antibiotics. Clinically she is doing okay. We'll have to watch her very closely. I am concerned about her. Physical therapy is working with her. N-terminal proBNP was elevated at 5190. Troponins were a bit elevated. Progress note dated 08/28/2017 The patient feels a bit more short of breath today. She is postop day #2, status post right hip surgery. She was placed on steroids and bronchodilators. Yesterday she was feeling better. The patient's chest x-ray shows multifocal infiltrates consistent with fluid overload and/or pneumonia. Today we will go ahead and treat her for thrush. She has oral thrush. In addition, we will do a CT angiogram of the chest to make sure there is no pulmonary embolism. Her N- terminal proBNP was elevated at 5190. Lab data includes a white count of 17 in room 13.9 hematocrit 42.1 and platelet count 482,000. Sodium potassium chloride and CO2 are normal. Anion gap normal. BUN and creatinine were 33 and 0.6. Chest x-ray from August 26 shows multifocal bilateral consolidations suspicious for pneumonia and/or pulmonary edema. Objective - Vital Signs Vital signs: Vital Signs Temp 98.9 F 08/28/17 07:37 Pulse 104 H 08/28/17 11:14 Resp 20 08/28/17 07:37 BP 149/65 08/28/17 07:37 Pulse Ox 94 L 08/28/17 07:37 Intake & Output 08/27/17 08/28/17 08/28/17 18:59 06:59 18:59 Intake Total 400 800 237 Output Total 600 600 200 Balance -200 200 37 Weight 62.5 kg Intake: IV 800 Sodium Chloride 0.9% 1, 800 000 ml @ 50 mls/hr IV . Q20H [facility] Rx#:[id number] Intake, IV Titration 400 Amount Sodium Chloride 0.9% 50 400 ml As IV .STK-MED ONE with ceFAZolin 2,000 mg Rx#:[id number] Oral 237 Output: Urine 600 600 200 Uretheral (Michael) 200 Other: Voiding Method Indwelling Catheter Indwelling Catheter Indwelling Catheter - Exam No acute distress, oriented 3. High flow nasal O2 in place. HEENT examination is grossly unremarkable. Mucous membranes are moist. No oral lesions. Neck supple. Full range of motion. No adenopathy thyromegaly or neck vein distention. Cardiovascular examination reveals regular rhythm rate. S1-S2 normal. No S3 or S4. No discernible murmur noted. Lungs reveal diffuse bilateral rhonchi. A few scattered crackles. Some mild high-pitched wheezes are noted. Breath sounds are equal bilaterally. Abdomen soft bowel sounds are heard. No masses or tenderness. Extremities are intact. No cyanosis clubbing or edema. Skin is without rash or lesion. Neurologic examination is brief but nonfocal. - Labs CBC & Chem 7: 08/28/17 06:18 08/28/17 06:18 Labs: Abnormal Lab Results - Last 24 Hours (Table) 08/28/17 08/28/17 08/28/17 Range/Units 06:18 06:18 07:02 WBC 17.0 H (3.8-10.6) k/uL Plt Count 482 H (150-450) k/uL Neutrophils # 14.9 H (1.3-7.7) k/uL BUN 33 H (7-17) mg/dL Glucose 138 H (74-99) mg/dL POC Glucose (mg/dL) 151 H (75-99) mg/dL 08/28/17 Range/Units 11:21 WBC (3.8-10.6) k/uL Plt Count (150-450) k/uL Neutrophils # (1.3-7.7) k/uL BUN (7-17) mg/dL Glucose (74-99) mg/dL POC Glucose (mg/dL) 182 H (75-99) mg/dL Microbiology - Last 24 Hours (Table) 08/25/17 12:11 Blood Culture - Preliminary Blood No Growth after 72 hours Assessment and Plan Assessment: Assessment Status post fall with right hip fracture. Diffuse bilateral infiltrates, which may relate to fluid and/or pneumonia. History of hypertension History of breast cancer, treated with left mastectomy as well as radiation and chemotherapy Recent upper respiratory tract infection treated with 2 courses of antibiotics Previous history of tobacco use, rule out COPD Chest x-ray and computed tomography scan findings suggesting significant abnormalities in the left chest consistent with either bronchogenic carcinoma and/or recurrent metastatic breast cancer. Status post cardiac catheterization with stent placement Peripheral vascular occlusive disease with previous stent placement Shortness of breath, rule out pulmonary embolism Plan: Plan dated 08/25/2017 The patient will have a VQ scan to rule out pulmonary embolism. I would've preferred a CT angiogram but she had a CT of the chest with contrast yesterday. We may have to do a CT angiogram tomorrow if there is any question about pulmonary embolism as part of her shortness of breath. Her d-dimer was elevated at 2.78. I did explain to the patient that she should go ahead and proceed with the repair of the right hip. The lung abnormalities can be worked up as outpatient. She will certainly need a pulmonary function test and a PET scan. Additional recommendations and suggestions are forthcoming. For her current situation, we'll make sure she is on oxygen therapy bronchodilators Symbicort and some steroids. Critical care time is 32 minutes. Plan dated 08/27/2017 Labs x-rays a medications will all be reviewed. Chest x-ray shows diffuse bilateral infiltrates. This could relate to fluid overload and/or pneumonia. White count of 17.3 hemoglobin and hematocrit was stable. Platelet count was okay. Blood gases show a PaO2 of 79 a PaCO2 of 43 and a pH of 7.39. That was on 100%. Sodium potassium chloride CO2 all normal BUN and creatinine were 33 and 0.70. Troponins were 0.088 0.096 0.080. N-terminal proBNP was 5190. The [facility] is [facility] with DuoNeb, Symbicort 160/4.5, 2 puffs twice a day Lasix 20 mg IV push was given one time and the patient was placed on prednisone 30 mg a day. Plan dated 08/28/2017 Labs x-rays and all medications are reviewed. She remains on updrafts Symbicort and prednisone. The patient will have a CT angiogram the chest to rule out pulmonary embolus some. In addition, we will give her some Diflucan for oral thrush. Prognosis is guarded. We'll continue to follow. Time with Patient: Less than 30
[2017-08-28] MEDS: FLUCONAZOLE 100 MG TAB PO SCH (15:39)
--- NOTE | 2017-08-28 16:43 | CT ---
EXAMINATION TYPE: CT angio chest DATE OF EXAM: 08/28/2017 COMPARISON: 08/24/2017 HISTORY: SOB, recent hip sx CT DLP: 218.2 mGycm. Automated Exposure Control for Dose Reduction was Utilized. CONTRAST: CTA scan of the thorax is performed with IV Contrast, patient injected with 70 mL of Isovue 370, pulm onary embolism protocol. MIP Images are created on CT scanner and reviewed. FINDINGS: LUNGS: There is a moderate left pleural effusion. Multifocal left pulmonary masses are seen with a [place] perior segment left upper lobe multilobulated pulmonary mass on series 5 image 61 measuring 3.7 x 5.1 cm and abutting the pleural surface and a left infrahilar mass on series 5 image 72 measuring 5.6 x 4.5 cm that could represent extensive confluent adenopathy or additional secondary mass. This extends in a craniocaudal dimension approximately 4.4 cm. There is downstream likely postobstructive atelect asis within the lingula. In addition there are new multifocal confluent opacities that are seen throughout but apically predom inant and predominating in a central distribution with extent to the pleural surface. Moderate right pleural effusion is also seen. Scattered groundglass opacities are geographic and noted throughout th e left lower lobe. Mild centrilobular and paraseptal emphysematous changes are present. Within the le ft lower lobe on series 5 image 71 there is an additional solid 9 mm pulmonary nodule. MEDIASTINUM: There is reflux of contrast into the inferior vena cava and hepatic veins suggesting com ponent of right heart failure. There is satisfactory enhancement of the pulmonary artery and its bran ches, there is no CT evidence for pulmonary embolism. No pericardial effusion is seen. Confluent and extensive mediastinal adenopathy is seen with left perihilar mass or adenopathy described above and a dditional prevascular adenopathy measuring 1.3 cm in short axis on series 4 image 49, subcarinal galina opathy measuring 1.7 cm in short axis, and right perihilar adenopathy measuring 1.1 cm in short axis. Few nonenlarged left supraclavicular lymph nodes are present. OTHER: There is a left adrenal gland nodule measuring 1.7 x 1.8 cm that is low density although does not 8 strict criteria for a benign adenoma on today's examination. Heart is mildly enlarged. There ar e moderate three-vessel coronary artery calcifications. IMPRESSION: 1. New extensive multifocal consolidations and areas of groundglass opacity in a central distribution . Therefore findings could relate to extensive pulmonary edema, pulmonary hemorrhage or multifocal pn eumonia. 2. No evidence of pulmonary embolus and. 3. Extensive mediastinal adenopathy and large left lower lobe as well as left perihilar masses again highly suspicious for neoplasm. 4. Moderate bilateral pleural effusions and multifocal atelectasis. 5. Left adrenal gland nodule is incompletely characterized and requires further workup.
[2017-08-28 17:08] LABS: Glucose,Whole Blood 189 mg/dL (75-99)
[2017-08-28] MEDS ORDERED: FUROSEMIDE 10 MG/ML 2 ML VIAL IV ONE (17:34)
[2017-08-28] MEDS: INSULIN ASPART 100 UNIT/ML 1 ML 10 ML VIAL SQ SCH ×2 (17:57→23:16)
--- NOTE | 2017-08-28 19:24 | PN ---
PROGRESS NOTE DATE OF SERVICE: 08/28/2017 REASON FOR FOLLOWUP: Abnormal x-ray, question of possible pneumonia. INTERVAL HISTORY: The patient did have an episode of increasing shortness of breath this morning. Apparently the patient did miss some of her breathing treatment. This afternoon her breathing seemed to have improved. Denies significant chest pain or cough. No abdominal pain. Pain to the right hip is currently improving compared to yesterday. EXAMINATION: Blood pressure 116/55, pulse of 81, temperature 98.5 she is 93% on 10 L nasal cannula. GENERAL DESCRIPTION: Elderly female up in the chair in no distress. RESPIRATORY SYSTEM: Unlabored breathing with decreased . No wheeze or crackle. HEART: S1, S2. Regular rate and rhythm. ABDOMEN: Soft, no tenderness. LABS: Hemoglobin 13.8, white count 17,000, BUN of 33, creatinine 0.60. DIAGNOSTIC IMPRESSION AND PLAN: Patient with abnormal x-ray and CT, more likely secondary to underlying malignancy with pneumonia less likely but not excluded. Clinically doubt resistant gram-negative pathogen. Currently on Levaquin. Will continue for short course. Continue supportive care. Family present at bedside. Questions answered. MMODL / IJN: [id number] /
[2017-08-28] MEDS: FUROSEMIDE 10 MG/ML 2 ML VIAL IV SCH (19:36)
[2017-08-28 20:31] LABS: Glucose,Whole Blood 159 mg/dL (75-99)
--- NOTE | 2017-08-28 20:36 | PN ---
PROGRESS NOTE DATE OF SERVICE: 08/28/2017. INTERVAL HISTORY: This 81-year-old woman who was admitted after right femoral neck fracture had hemiarthroplasty. The patient was also having difficulty in breathing. The patient underwent a CT of the chest today which showed extensive multifocal consolidations and extensive mediastinal adenopathy and large left lobe perihilar mass and moderate bilateral pleural effusion, multiple atelectasis in the left adrenal gland, lung nodule also. The patient being closely monitored at this time. Dr. Jensen is following the patient closely. The patient also is refusing some other treatments at this time. Diflucan for oral thrush has been given at this time. The D-dimer was elevated. 2D echo showed ejection fraction 50 to 55%. PAST MEDICAL HISTORY: Reviewed. REVIEW OF SYSTEMS: CARDIOVASCULAR: No angina or palpitations. Respiration mentioned earlier. GI no nausea or vomiting. : No dysuria. Nervous system: No numbness or weakness. MEDICATIONS: Reviewed and include: 1. Tylenol 650 q.6h p.r.n. 2. [place] 5 mg q.4h p.r.n. 3. DuoNeb q.i.d. and p.r.n. 4. Xanax 0.25 t.i.d. 5. Norvasc. 6. Cepacol. 7. Symbicort. 8. Plavix. 9. Diflucan 100 mg daily. 10.Heparin. 11.Apresoline p.r.n. 12.Levaquin. 13.Lopressor. 14.P.r.n. medications prednisone, Protonix, Senokot-S, Restoril. PHYSICAL EXAM: Patient is alert, oriented x3. Pulse is 104. Blood pressure is 116/52, respiration 18, temperature 97.5, pulse ox 98% on room air. HEENT: Conjunctivae normal. Oral mucosa moist. NECK is no jugular venous distention. No carotid bruit. No lymph node enlargement. CARDIOVASCULAR: S1-S2 muffled. RESPIRATORY: Breath sounds diminished in the bases. Scattered rhonchi and crackles. Expiratory wheezing also present. ABDOMEN: Soft, nontender. No mass palpable. LEGS status post leg surgery. NERVOUS SYSTEM: No focal deficits. LABS: WBC 17 and BUN is 33. ASSESSMENT: 1. Status post right femoral neck fracture, possible pathologic fracture status post right hip hemiarthroplasty. 2. Left hilar mass with left lower lobe lung mass, possible breast mass or breast cancer with metastasis. 3. Acute hypoxic respiratory failure secondary to chronic obstructive pulmonary disease acute exacerbation. 4. Bilateral pneumonia possibly gram-negative. 5. Increased WBC. 6. Increased random blood sugar. 7. Increased platelets. 8. History of nicotine dependence. 9. History of cholecystectomy. 10.History of coronary artery disease/stent. 11.Positive congestive heart failure. 12.History of hernia repair. 13.History of depression. 14.FULL CODE. RECOMMENDATIONS AND DISCUSSION: We will recommend to continue current management and symptomatic treatment, current medications, continue the bronchodilator treatment. I would also recommend continue the current medications, management and symptomatic treatment. Otherwise, continue the broad-spectrum IV antibiotics. I would also add a small dose of diuretics. Continue the beta blockers. Guarded prognosis. Further recommendations to follow. Continue the rest of the medications. PT/OT evaluation. Otherwise rest of the recommendations per Dr. Jensen. See orders for details. We will change the antibiotics to continue antibiotics as well. Also obtain an infectious disease evaluation as mentioned. Once again, the prognosis extremely guarded because of multiple complex medical issues at this time. Further recommendations to follow. MMODL / IJN: [id number] / LAURA
[2017-08-28] MEDS: SENNOSIDES-DOCUSATE SODIUM 1 EACH TAB PO SCH (23:10)
[2017-08-28] MEDS: amLODIPine 5 MG TAB PO SCH (23:12)
[2017-08-28] MEDS: SERTRALINE 50 MG TAB PO SCH (23:13)
[2017-08-28] MEDS: methylPREDNISolone SOD SUCCI 40 MG/ML 1 ML VIAL IV SCH (23:16)
[2017-08-29] MEDS: methylPREDNISolone SOD SUCCI 40 MG/ML 1 ML VIAL IV SCH ×3 (06:26→18:23)
[2017-08-29 06:58] LABS: Glucose,Whole Blood 240 mg/dL (75-99)
[2017-08-29 07:02] LABS: Basophils % (A) 0 %; Eosinophils # (A) 0.1 k/uL (0-0.7); Eosinophils % (A) 1 %; HCT 42.2 % (34.0-46.0); HGB 13.8 gm/dL (11.4-16.0); Lymphocytes % (A) 6 %; MCH 28.9 pg (25.0-35.0); MCHC 32.7 g/dL (31.0-37.0); MCV 88.4 fL (80.0-100.0); Mean Platelet Volume 8.3; Monocytes # (A) 0.2 k/uL (0-1.0); Monocytes % (A) 1 %; Neutrophils # (A) 14.8 k/uL (1.3-7.7); Neutrophils % (A) 91 %; Platelet Count 440 k/uL (150-450); RBC 4.77 m/uL (3.80-5.40); RDW 15.7 % (11.5-15.5); WBC 16.3 k/uL (3.8-10.6)
[2017-08-29 07:17] LABS: Anion Gap 12 mmol/L; Blood Urea Nitrogen 37 mg/dL (7-17); Calcium 8.9 mg/dL (8.4-10.2); Carbon Dioxide 26 mmol/L (22-30); Chloride 100 mmol/L (98-107); Glucose 194 mg/dL (74-99); Sodium 138 mmol/L (137-145)
[2017-08-29] MEDS: IPRATROPIUM-ALBUTEROL 3 ML NEB INHALATION SCH ×5 (07:55→19:50)
[2017-08-29] MEDS: FORMOTEROL FUMARATE 20 MCG/2 ML NEBU INHALATION SCH ×2 (08:23→19:50)
[2017-08-29] MEDS: BUDESONIDE 1 MG/2 ML NEBU INHALATION SCH ×2 (08:24→19:50)
[2017-08-29] MEDS: HEPARIN SODIUM,PORCINE 5,000 UNIT/ML 1 ML VIAL SQ SCH ×2 (09:12→21:48)
[2017-08-29] MEDS: FUROSEMIDE 10 MG/ML 2 ML VIAL IV SCH (09:12)
[2017-08-29] MEDS: PANTOPRAZOLE 40 MG/10 ML VIAL IVP SCH ×2 (09:12→21:47)
[2017-08-29] MEDS: LOSARTAN-HCTZ 50-12.5 MG 1 EACH TAB PO SCH (09:14)
[2017-08-29] MEDS: FLUCONAZOLE 100 MG TAB PO SCH (09:14)
[2017-08-29] MEDS: METOPROLOL TARTRATE 50 MG TAB PO SCH ×2 (09:15→21:48)
[2017-08-29] MEDS: CLOPIDOGREL 75 MG TAB PO SCH (09:15)
[2017-08-29] MEDS: LEVOFLOXACIN 500 MG TAB PO SCH (09:15)
[2017-08-29] MEDS: INSULIN ASPART 100 UNIT/ML 1 ML 10 ML VIAL SQ SCH ×4 (09:16→21:47)
[2017-08-29 11:26] LABS: Glucose,Whole Blood 235 mg/dL (75-99)
--- NOTE | 2017-08-29 11:52 | P.PN ---
Subjective Progress Note Date: 08/29/17 Principal diagnosis: s/p right hip hemiarthroplasty Patient is doing well, pain is controlled. She denies any acute changes in pain involving the hip. Objective - Vital Signs Vital signs: Vital Signs Temp 98 F 08/29/17 06:48 Pulse 104 H 08/29/17 08:42 Resp 16 08/29/17 06:48 BP 153/65 08/29/17 06:48 Pulse Ox 97 08/29/17 06:48 Intake & Output 08/28/17 08/29/17 08/29/17 18:59 06:59 18:59 Intake Total 337 Output Total 500 Balance -163 Weight 62.5 kg Intake: Oral 337 Output: Urine 500 Uretheral (Michael) 200 Other: Voiding Method Indwelling Catheter Bedside Commode # Voids 1 # Bowel Movements 1 - Exam Right lower extremity: Incision is clean, dry, and intact. Era are in good position. There is minimal soft tissue swelling and ecchymosis surrounding the medial and lateral aspects of the incision. Calf is soft, no tenderness with palpation. Plantar flexion, dorsiflexion, EHL, FHL are intact. Sensory exam to light touch throughout the extremity is intact, dorsal pedis pulses 2+. - Labs CBC & Chem 7: 08/29/17 06:51 08/29/17 06:51 Labs: Abnormal Lab Results - Last 24 Hours (Table) 08/28/17 08/28/17 08/29/17 Range/Units 16:56 20:07 06:51 WBC 16.3 H (3.8-10.6) k/uL RDW 15.7 H (11.5-15.5) % Neutrophils # 14.8 H (1.3-7.7) k/uL BUN (7-17) mg/dL Glucose (74-99) mg/dL POC Glucose (mg/dL) 189 H 159 H (75-99) mg/dL 08/29/17 08/29/17 08/29/17 Range/Units 06:51 06:53 11:19 WBC (3.8-10.6) k/uL RDW (11.5-15.5) % Neutrophils # (1.3-7.7) k/uL BUN 37 H (7-17) mg/dL Glucose 194 H (74-99) mg/dL POC Glucose (mg/dL) 240 H 235 H (75-99) mg/dL Microbiology - Last 24 Hours (Table) 08/25/17 12:11 Blood Culture - Preliminary Blood No Growth after 72 hours Assessment and Plan Plan: Assessment: 1. Postop day #3 status post right hip hemiarthroplasty Plan: Patient is doing fairly well at this time, continue to work on daily physical therapy with walker ambulation Pain control, continue use of oral medication GI and DVT prophylaxis, we did resume her Plavix Other medical specialty recommendations We will plan to transfer admitting privileges to internal medicine at this time We'll continue to follow during inpatient stay Time with Patient: Less than 30
[2017-08-29] MEDS: ACETAMINOPHEN TAB 325 MG TAB PO PRN (11:58)
[2017-08-29] MEDS ORDERED: CEFEPIME 2 GM in SODIUM CHLORIDE 0.9% 50 ML IVPB SCH (14:30)
[2017-08-29 15:16] LABS: Hemoglobin A1C 6.3 % (4.0-6.0)
[2017-08-29 17:08] LABS: Glucose,Whole Blood 221 mg/dL (75-99)
--- NOTE | 2017-08-29 18:13 | US ---
EXAMINATION TYPE: US chest DATE OF EXAM: 08/29/2017 COMPARISON: NONE CLINICAL HISTORY: bilateral pleural effusions. EXAM MEASUREMENTS: Right Pleural Effusion fluid pocket: 3.7 cm Right skin to fluid thickness: 2.7 cm Left Pleural Effusion fluid pocket: 7.1 cm Left skin to fluid thickness: 2.4 cm Right side marked for possible thoracentesis outside the dept. Left side marked for possible thoracentesis outside the dept. Lung shown in picture, within fluid. Pulmonologists are able to review the images in the patient?s EMR. IMPRESSIONS: Bilateral pleural effusions
--- NOTE | 2017-08-29 18:26 | P.PN ---
Subjective Progress Note Date: 08/29/17 Principal diagnosis: Diffuse bilateral infiltrates, mediastinal adenopathy and large left lower lobe as well as left perihilar masses, highly suspicious for neoplasm Progress note dated 08/27/2017 The patient did have her hip surgery done yesterday. She is postop day #1. We placed her on IV Solu-Medrol and bronchodilators. Her ventilation perfusion lung scan was intermediate probability. Her chest x-ray shows diffuse bilateral is consistent with fluid overload and/or pneumonia. We'll make sure she is on appropriate antibiotics. Clinically she is doing okay. We'll have to watch her very closely. I am concerned about her. Physical therapy is working with her. N-terminal proBNP was elevated at 5190. Troponins were a bit elevated. Progress note dated 08/28/2017 The patient feels a bit more short of breath today. She is postop day #2, status post right hip surgery. She was placed on steroids and bronchodilators. Yesterday she was feeling better. The patient's chest x-ray shows multifocal infiltrates consistent with fluid overload and/or pneumonia. Today we will go ahead and treat her for thrush. She has oral thrush. In addition, we will do a CT angiogram of the chest to make sure there is no pulmonary embolism. Her N- terminal proBNP was elevated at 5190. Lab data includes a white count of 17 in room 13.9 hematocrit 42.1 and platelet count 482,000. Sodium potassium chloride and CO2 are normal. Anion gap normal. BUN and creatinine were 33 and 0.6. Chest x-ray from August 26 shows multifocal bilateral consolidations suspicious for pneumonia and/or pulmonary edema. On 08/29/2017 patient seen again in follow-up on surgical floor. This is day #3 , status post right hip hemiarthroplasty after sustaining a displaced right hip femoral neck fracture post fall. Patient remains on 10 L per high flow nasal cannula, and her O2 saturation is 99%, this can probably be weaned down, she is afebrile, hemodynamically stable. Denies any chest pain, denies any worsening dyspnea. Chest CTA from 08/28/2017 has been reviewed and shows new extensive multifocal consolidations in areas of groundglass opacity in a central distribution most likely related to extensive pulmonary edema, or multifocal pneumonia. No evidence of pulmonary embolism, and extensive mediastinal adenopathy and large left lower lobe as well as left perihilar masses highly suspicious for neoplasm. There were moderate bilateral pleural effusions and multifocal atelectasis. Adrenal gland nodule is incompletely characterized, and requires further workup. Patient has been getting IV Lasix at 20 mg daily, we will increase the dose to 40 mg IV every 12 hours, continue with current antibiotic coverage, continue with nebulized bronchodilators, will obtain ultrasound of bilateral chest. Today's labs were reviewed. Continue encouraging incentive spirometry, and pulmonary toileting. Objective - Vital Signs Vital signs: Vital Signs Temp 98.2 F 08/29/17 14:46 Pulse 90 08/29/17 15:53 Resp 16 08/29/17 14:46 BP 146/71 08/29/17 14:46 Pulse Ox 99 08/29/17 14:46 Intake & Output 08/28/17 08/29/17 08/29/17 18:59 06:59 18:59 Intake Total 337 Output Total 500 Balance -163 Weight 62.5 kg Intake: Oral 337 Output: Urine 500 Uretheral (Michael) 200 Other: Voiding Method Indwelling Catheter Bedside Commode # Voids 1 2 # Bowel Movements 1 2 - Exam No acute distress, oriented 3. High flow nasal O2 in place. HEENT examination is grossly unremarkable. Mucous membranes are moist. No oral lesions. Neck supple. Full range of motion. No adenopathy thyromegaly or neck vein distention. Cardiovascular examination reveals regular rhythm rate. S1-S2 normal. No S3 or S4. No discernible murmur noted. Lungs reveal diffuse bilateral basilar crackles. No wheezes noted on today's exam. Breath sounds are equal bilaterally. Abdomen soft bowel sounds are heard. No masses or tenderness. Extremities are intact. No cyanosis clubbing or edema. Skin is without rash or lesion. Neurologic examination is brief but nonfocal. - Labs CBC & Chem 7: 08/29/17 06:51 08/29/17 06:51 Labs: Abnormal Lab Results - Last 24 Hours (Table) 08/28/17 08/28/17 08/29/17 Range/Units 06:18 20:07 06:51 WBC 16.3 H (3.8-10.6) k/uL RDW 15.7 H (11.5-15.5) % Neutrophils # 14.8 H (1.3-7.7) k/uL BUN (7-17) mg/dL Glucose (74-99) mg/dL POC Glucose (mg/dL) 159 H (75-99) mg/dL Hemoglobin A1c 6.3 H (4.0-6.0) % 08/29/17 08/29/17 08/29/17 Range/Units 06:51 06:53 11:19 WBC (3.8-10.6) k/uL RDW (11.5-15.5) % Neutrophils # (1.3-7.7) k/uL BUN 37 H (7-17) mg/dL Glucose 194 H (74-99) mg/dL POC Glucose (mg/dL) 240 H 235 H (75-99) mg/dL Hemoglobin A1c (4.0-6.0) % 08/29/17 Range/Units 17:05 WBC (3.8-10.6) k/uL RDW (11.5-15.5) % Neutrophils # (1.3-7.7) k/uL BUN (7-17) mg/dL Glucose (74-99) mg/dL POC Glucose (mg/dL) 221 H (75-99) mg/dL Hemoglobin A1c (4.0-6.0) % Microbiology - Last 24 Hours (Table) 08/25/17 12:11 Blood Culture - Preliminary Blood No Growth after 96 hours Assessment and Plan Plan: Assessment Mechanical fall sustaining a displaced right femoral neck fracture, status post right hip hemiarthroplasty, stop day 3 Diffuse bilateral infiltrates, which may relate to fluid and/or pneumonia. Extensive mediastinal adenopathy and large left lower lobe as well as left perihilar masses highly suspicious for neoplasm Moderate bilateral pleural effusions and multifocal atelectasis History of hypertension History of breast cancer, treated with left mastectomy as well as radiation and chemotherapy Recent upper respiratory tract infection treated with 2 courses of antibiotics Previous history of tobacco use, rule out COPD Status post cardiac catheterization with stent placement Peripheral vascular occlusive disease with previous stent placement Shortness of breath, rule out pulmonary embolism Plan: Plan dated 08/25/2017 The patient will have a VQ scan to rule out pulmonary embolism. I would've preferred a CT angiogram but she had a CT of the chest with contrast yesterday. We may have to do a CT angiogram tomorrow if there is any question about pulmonary embolism as part of her shortness of breath. Her d-dimer was elevated at 2.78. I did explain to the patient that she should go ahead and proceed with the repair of the right hip. The lung abnormalities can be worked up as outpatient. She will certainly need a pulmonary function test and a PET scan. Additional recommendations and suggestions are forthcoming. For her current situation, we'll make sure she is on oxygen therapy bronchodilators Symbicort and some steroids. Critical care time is 32 minutes. Plan dated 08/27/2017 Labs x-rays a medications will all be reviewed. Chest x-ray shows diffuse bilateral infiltrates. This could relate to fluid overload and/or pneumonia. White count of 17.3 hemoglobin and hematocrit was stable. Platelet count was okay. Blood gases show a PaO2 of 79 a PaCO2 of 43 and a pH of 7.39. That was on 100%. Sodium potassium chloride CO2 all normal BUN and creatinine were 33 and 0.70. Troponins were 0.088 0.096 0.080. N-terminal proBNP was 5190. The patient is on [facility] with DuoNeb, Symbicort 160/4.5, 2 puffs twice a day Lasix 20 mg IV push was given one time and the patient was placed on prednisone 30 mg a day. Plan dated 08/28/2017 Labs x-rays and all medications are reviewed. She remains on updrafts Symbicort and prednisone. The patient will have a CT angiogram the chest to rule out pulmonary embolus some. In addition, we will give her some Diflucan for oral thrush. Prognosis is guarded. We'll continue to follow. Plan dated 08/29/2017 We will increase the Lasix to 40 mg every 12 hours, wean FiO2, continue IV steroids, continue current antibiotic coverage, continue nebulized bronchodilators. We'll obtain ultrasound of the chest, to evaluate the size of bilateral pleural effusions, may need to consider thoracentesis. In that case the pleural fluid could be sent for cytology, and this could also be for therapeutic purposes as well. We'll continue to follow I performed a history & physical examination of the patient and discussed their management with my nurse practitioner, Karuna Johnson. I reviewed the nurse practitioner's note and agree with the documented findings and plan of care. Lung sounds are diminished on the left, and crackles over right posterior base. The findings and the impression was discussed with the patient. I attest to the documentation by the nurse practitioner. Time with Patient: Less than 30
[2017-08-29] MEDS: SODIUM CHLORIDE 0.9% 1,000 ML IV SCH (19:12)
--- NOTE | 2017-08-29 19:13 | PN ---
PROGRESS NOTE DATE OF SERVICE: 08/29/2017 This 81-year-old woman who was admitted after right femoral neck fracture had possibly pathology fracture. The patient also had left hilar mass and the patient also had acute hypoxic respiratory failure secondary to fluid overload and possibly some pneumonia also. The patient is on broad-spectrum IV antibiotics. Patient is still on high-flow oxygen at this time and Orthopedics is also following the patient closely. The patient also is on IV steroids as well. The patient is initiated on Cefepime by Dr. Ibarra at this time at this time. PAST MEDICAL HISTORY: Reviewed. REVIEW OF SYSTEMS: CARDIOVASCULAR: No angina or palpitations. RESPIRATORY: As mentioned earlier. GI: As mentioned earlier. : No dysuria. CENTRAL NERVOUS SYSTEM: No numbness or weakness. CURRENT MEDICATIONS ARE: Reviewed and include: 1. Tylenol 650 q.6h p.r.n. 2. [place] 5 mg q.4h p.r.n. 3. DuoNeb q.i.d. and p.r.n. 4. Xanax 0.25 t.i.d. 5. Norvasc 5 mg q.h.s. 6. Cepacol. 7. Pulmicort 1 mg b.i.d. 8. Cefepime 2 g IV b.i.d. 9. Plavix. 10.Diflucan 100 mg p.o. daily. 11.Perforomist 20 mcg b.i.d. 12.Lasix 40 mg IV b.i.d. 1350/12.5 p.o. b.i.d. 14.Heparin 5000 subcu b.i.d. 15.Apresoline. 16.Levaquin. 17.Solu-Medrol 40 IV q.8h. 18.Reglan. 19.Lopressor 50 mg p.o. b.i.d. 20.Narcan. 21.Zofran. 22.Protonix. 23.Senokot-S. 24.Zoloft. 25.Restoril. PHYSICAL EXAM: Patient is alert, oriented x3. Pulse 82. Blood pressure 140/72, respiration 16 , temperature 98.2, pulse ox 99% on 10 L. HEENT: Conjunctivae normal. Oral mucosa moist. NECK is no jugular venous distention. No carotid bruit. No lymph node enlargement. CARDIOVASCULAR: S1, S2 muffled. RESPIRATION: Breath sounds diminished in the bases. A few scattered rhonchi. No crackles. ABDOMEN: Soft, nontender. No mass palpable. LEGS: No edema. Status post surgery. NERVOUS SYSTEM: No focal deficits. LABS: WBC 16.3. Other labs are noted. ASSESSMENT: 1. Status post right hip femoral neck fracture, possibly pathological fracture, status post hemiarthroplasty. 2. Left hilar mass with left lower lobe lung mass possible lung cancer or breast cancer with metastasis. 3. Acute hypoxic respiratory failure secondary to chronic obstructive pulmonary disease acute exacerbation. 4. Possible bilateral pneumonia possibly gram-negative. 5. Increased WBC. 6. Increased random blood sugar. 7. Increased platelets. 8. History of nicotine dependence. 9. History of cholecystectomy. 10.History of coronary artery disease/stent. 11.History of congestive heart failure. 12.History of hernia repair. 13.History of depression. 14.FULL CODE. RECOMMENDATIONS AND DISCUSSION: Recommend to continue current medications, management and symptomatic treatment. Otherwise, continue the bronchodilators. Continue the rest of the medications. Patient is on high-flow oxygen at this time. We will try to titrate the oxygen down and PT/OT evaluation. Continue to monitor. Follow closely with multiple consultants including Pulmonary, Infectious Disease. The patient is on broad-spectrum IV antibiotics as of now. We will continue to monitor along with multiple consultants including pulmonary and infectious disease and discussed at length with the family. Discussed with Jonh Torres, the primary physician. Further recommendations to follow. MMODL / IJN: [id number] / LAURA
--- NOTE | 2017-08-29 19:16 | P.PN ---
Subjective Progress Note Date: 08/29/17 Principal diagnosis: Probable underlying malignancy The patient is an 81-year-old lady, in generally good health. For about 2-3 weeks prior to this admission, the patient had noted wheezing, shortness of breath and some cough which she attributed to an upper respiratory tract infection. The patient subsequently tripped while walking across her garage and fell. She did not lose consciousness or hit her head. She hurt her right hip, and was brought to the ER where she was found to have a right femoral neck fracture. Routine chest x-ray appear to indicate a left lung mass. The patient subsequently had a computed tomography scan of the chest which confirmed the presence of a pleural-based left upper lobe, left hilar, as well as right lower lobe masses along with masslike infiltrate in the left lower lobe. Mediastinal adenopathy was also noted. This is felt to be concerning for malignancy. Consult was therefore placed a further evaluation and recommendations The patient had a history of left-sided breast cancer diagnosed about 30 years ago, treated with mastectomy followed by chemotherapy and hormonal therapy under the care of Dr. Dominguez. She has a history of smoking for about 20 years but quit about 20 years ago. 08/29/17 - Patient seen and evaluated in follow-up today. Status post day 3 of right hip pooja-arthroplasty for right hip femoral neck fracture post fall. She is still on high flow oxygen, although saturations are good. Denies increasing SOB or pain. Objective - Vital Signs Vital signs: Vital Signs Temp 98.2 F 08/29/17 14:46 Pulse 90 08/29/17 15:53 Resp 16 08/29/17 14:46 BP 146/71 08/29/17 14:46 Pulse Ox 99 08/29/17 14:46 Intake & Output 08/29/17 08/29/17 08/30/17 06:59 18:59 06:59 Other: Voiding Method Bedside Commode # Voids 1 2 # Bowel Movements 1 2 - Constitutional General appearance: Present: average body habitus, no acute distress - EENT Eyes: Present: EOMI, PERRLA, dentition normal ENT: Present: hard of hearing, NA/AT, normal oropharynx - Neck Neck: Present: normal ROM - Respiratory Respiratory: bilateral: diminished - Cardiovascular Rhythm: regular - Peripheral edema foot Peripheral Edema: bilateral: 2+ - Gastrointestinal General gastrointestinal: Present: normal bowel sounds, soft - Integumentary Integumentary: Present: pale - Musculoskeletal Musculoskeletal: Present: generalized weakness - Psychiatric Psychiatric: Present: A&O x's 3 - Labs CBC & Chem 7: 08/29/17 06:51 08/29/17 06:51 Labs: Abnormal Lab Results - Last 24 Hours (Table) 08/28/17 08/28/17 08/29/17 Range/Units 06:18 20:07 06:51 WBC 16.3 H (3.8-10.6) k/uL RDW 15.7 H (11.5-15.5) % Neutrophils # 14.8 H (1.3-7.7) k/uL BUN (7-17) mg/dL Glucose (74-99) mg/dL POC Glucose (mg/dL) 159 H (75-99) mg/dL Hemoglobin A1c 6.3 H (4.0-6.0) % 08/29/17 08/29/17 08/29/17 Range/Units 06:51 06:53 11:19 WBC (3.8-10.6) k/uL RDW (11.5-15.5) % Neutrophils # (1.3-7.7) k/uL BUN 37 H (7-17) mg/dL Glucose 194 H (74-99) mg/dL POC Glucose (mg/dL) 240 H 235 H (75-99) mg/dL Hemoglobin A1c (4.0-6.0) % 08/29/17 Range/Units 17:05 WBC (3.8-10.6) k/uL RDW (11.5-15.5) % Neutrophils # (1.3-7.7) k/uL BUN (7-17) mg/dL Glucose (74-99) mg/dL POC Glucose (mg/dL) 221 H (75-99) mg/dL Hemoglobin A1c (4.0-6.0) % Microbiology - Last 24 Hours (Table) 08/25/17 12:11 Blood Culture - Preliminary Blood No Growth after 96 hours Assessment and Plan Plan: Assessment and Recs: Assessment and Plan (1) Lung mass Narrative/Plan: - The clinical picture is highly suspicious for malignancy, with bilateral masses and possible postobstructive phenomenon in the left lower lobe. Possible disease include a primary lung malignancy. Metastasis is also in the differential. The patient does have a history of breast cancer. While recurrence after 10 years is rare, late recurrences 20 or even 30 years after can happen. - The patient will need additional workup including tissue diagnosis. She has been evaluated by pulmonary medicine. Agree with their plan to proceed with a hip surgery first with additional workup and biopsy subsequently. - In the meantime breast cancer tumor markers have been checked and CA15-3 is mildly elevated at 52. This may or may not be related to underlying recurrent malignancy - Will continue to follow and await her recovery for further malignant work-up can be initated. Current Visit: Yes Status: Acute Code(s): R91.8 - OTHER NONSPECIFIC ABNORMAL FINDING OF LUNG FIELD SNOMED Code(s): 520550167 (2) Closed right hip fracture Narrative/Plan: Status post day 3 of surgery and doing well. - Given the possibility of malignancy, this would increase her risk of venous thrombus embolism post surgery. - Therefore the patient should have full dose anticoagulation for prophylaxis. Physician Attestation: I have completed the Full history and physical of this patient and agree with the above dictation by Cony Naranjo NP, Dictated as a scribe.
--- NOTE | 2017-08-29 19:28 | PN ---
PROGRESS NOTE DATE OF SERVICE: 08/29/2017. REASON FOR FOLLOWUP: Possible pneumonia. INTERVAL HISTORY: The patient is afebrile. She seems to be breathing more comfortably today. She did have some cough; however, was unable to cough up any sputum. No nausea, vomiting or abdominal pain reported or any diarrhea. EXAMINATION: Blood pressure 146/71 with a pulse of 82, temperature 98.2. She is 99% on 10L high- flow oxygen. General description is an elderly female up in the bed in no distress. RESPIRATORY SYSTEM: Unlabored breathing with decreased breath sounds in the bases, no wheeze. HEART: S1, S2. Regular rate and rhythm. ABDOMEN: Soft. No tenderness. LABS: Hemoglobin 13.2, white count 16.2. BUN of 37, creatinine 0.63. CT done yesterday did show multiple infiltrate changes which seemed to have gotten worse from her admitting CT. DIAGNOSTIC IMPRESSION AND PLAN: Patient with an abnormal CT likely suspicious for malignancy. Pneumonia not entirely excluded; however, in view of slight worsening of her CT finding, we will broaden her antibiotic therapy by adding cefepime 2 g q.12h. the patient did have a history of PENICILLIN allergy as a child and no history of any anaphylaxis. Cefepime will be safe to used. Will see if the patient is able to provide any sputum. Pulmonary is planning for possible thoracocentesis. Continue supportive care. MMKEVENL / IJN: [id number] /
[2017-08-29 20:30] LABS: Glucose,Whole Blood 252 mg/dL (75-99)
[2017-08-29] MEDS ORDERED: FUROSEMIDE 10 MG/ML 2 ML VIAL IV SCH (21:00)
[2017-08-29] MEDS: SERTRALINE 50 MG TAB PO SCH (21:48)
[2017-08-29] MEDS: amLODIPine 5 MG TAB PO SCH (21:48)
[2017-08-29] MEDS: SENNOSIDES-DOCUSATE SODIUM 1 EACH TAB PO SCH (21:49)
[2017-08-29] MEDS: FUROSEMIDE 10 MG/ML 4 ML VIAL IV SCH (22:45)
[2017-08-30] MEDS: methylPREDNISolone SOD SUCCI 40 MG/ML 1 ML VIAL IV SCH ×5 (01:22→23:51)
[2017-08-30] MEDS: ACETAMINOPHEN TAB 325 MG TAB PO PRN ×3 (02:33→23:51)
[2017-08-30] MEDS: CEFEPIME 2 GM in SODIUM CHLORIDE 0.9% 50 ML IVPB SCH ×2 (03:42→16:36)
[2017-08-30] MEDS: BUDESONIDE 1 MG/2 ML NEBU INHALATION SCH ×2 (07:10→20:01)
[2017-08-30] MEDS: IPRATROPIUM-ALBUTEROL 3 ML NEB INHALATION SCH ×4 (07:10→20:01)
[2017-08-30] MEDS: FORMOTEROL FUMARATE 20 MCG/2 ML NEBU INHALATION SCH ×2 (07:10→20:01)
[2017-08-30 07:32] LABS: Glucose,Whole Blood 220 mg/dL (75-99)
[2017-08-30 08:23] LABS: INR 1.2 (<1.2); Prothrombin Time 11.7 sec (9.0-12.0)
[2017-08-30] MEDS: FUROSEMIDE 10 MG/ML 4 ML VIAL IV SCH ×2 (08:23→21:29)
[2017-08-30] MEDS: HEPARIN SODIUM,PORCINE 5,000 UNIT/ML 1 ML VIAL SQ SCH ×2 (08:23→21:26)
[2017-08-30] MEDS: LEVOFLOXACIN 500 MG TAB PO SCH (08:23)
[2017-08-30] MEDS: FLUCONAZOLE 100 MG TAB PO SCH (08:23)
[2017-08-30] MEDS: CLOPIDOGREL 75 MG TAB PO SCH (08:23)
[2017-08-30] MEDS: METOPROLOL TARTRATE 50 MG TAB PO SCH ×2 (08:24→21:26)
[2017-08-30] MEDS: LOSARTAN-HCTZ 50-12.5 MG 1 EACH TAB PO SCH (08:24)
[2017-08-30] MEDS: PANTOPRAZOLE 40 MG/10 ML VIAL IVP SCH (08:24)
[2017-08-30] MEDS: INSULIN ASPART 100 UNIT/ML 1 ML 10 ML VIAL SQ SCH ×4 (08:25→21:27)
[2017-08-30 11:18] LABS: Glucose,Whole Blood 165 mg/dL (75-99)
[2017-08-30 12:12] VITALS: RESP 16
--- NOTE | 2017-08-30 12:22 | P.PN ---
Subjective Progress Note Date: 08/30/17 Principal diagnosis: s/p right hip hemiarthroplasty Patient is doing well, pain is controlled. She denies any acute changes in pain involving the hip. Objective - Vital Signs Vital signs: Vital Signs Temp 98.1 F 08/30/17 12:12 Pulse 94 08/30/17 12:12 Resp 16 08/30/17 12:12 BP 123/71 08/30/17 12:12 Pulse Ox 95 08/30/17 12:12 Intake & Output 08/29/17 08/30/17 08/30/17 18:59 06:59 18:59 Intake Total 200 350 Balance 200 350 Weight 63 kg Intake: Oral 200 350 Other: Voiding Method Bedside Commode # Voids 2 1 # Bowel Movements 2 - Exam Right lower extremity: Incision is clean, dry, and intact. Era are in good position. There is minimal soft tissue swelling and ecchymosis surrounding the medial and lateral aspects of the incision. Calf is soft, no tenderness with palpation. Plantar flexion, dorsiflexion, EHL, FHL are intact. Sensory exam to light touch throughout the extremity is intact, dorsal pedis pulses 2+. - Labs CBC & Chem 7: 08/29/17 06:51 08/29/17 06:51 Labs: Abnormal Lab Results - Last 24 Hours (Table) 08/28/17 08/29/17 08/29/17 Range/Units 06:18 17:05 20:27 INR (<1.2) POC Glucose (mg/dL) 221 H 252 H (75-99) mg/dL Hemoglobin A1c 6.3 H (4.0-6.0) % 08/30/17 08/30/17 08/30/17 Range/Units 07:28 07:58 11:11 INR 1.2 H (<1.2) POC Glucose (mg/dL) 220 H 165 H (75-99) mg/dL Hemoglobin A1c (4.0-6.0) % Microbiology - Last 24 Hours (Table) 08/25/17 12:11 Blood Culture - Preliminary Blood No Growth after 96 hours Assessment and Plan Plan: Assessment: 1. Postop day #4 status post right hip hemiarthroplasty Plan: Patient is doing fairly well at this time, continue to work on daily physical therapy with walker ambulation Pain control, continue use of oral medication GI and DVT prophylaxis, we did resume her Plavix Other medical specialty recommendations We will plan to transfer admitting privileges to internal medicine at this time We will be signing outpatient at this time, we will be available for any further questions regarding patient Time with Patient: Less than 30
--- NOTE | 2017-08-30 14:38 | P.PN ---
Subjective Progress Note Date: 08/30/17 Principal diagnosis: COPD, lung mass Pulmonary consultation 08/25/2017 This is a very pleasant 81-year-old female who presents to the emergency department having fallen and fractured her right hip. She was apparently on the garage and fell on a piece of wood that was left there by her grand son. Anyway, the patient was admitted to the hospital for further evaluation and treatment. In the process of evaluating her, she had a chest x-ray which showed a mass. A computed tomography scan was done and confirmed the mass. She is a former smoker. In addition to all this, she's been complaining of some shortness of breath chest congestion cough. Coughing up some minimal phlegm. She's been seeing Dr. Jimi Torres her primary doctor. He gave her 2 different courses of antibiotics. I had a long chat today with the patient and the patient's family. I told him that she should proceed with the hip repair. We could see her once she is out of the hospital for evaluation pulmonary function testing and a PET scan. At that point we can make a decision about what to do next. Surgery. Awaiting a couple days because the patient was on Plavix for a stent that was placed in her lower extremity. Her chest x-rays and labs were reviewed by myself. Progress note dictated 08/26/2017 The patient is seen again today in follow-up on the surgical floor. She is resting quite comfortably in bed. She is breathing easier today as compared to yesterday. She has been initiated on IV Solu-Medrol and bronchodilators. Still requiring 15 L high flow nasal cannula and maintaining good O2 saturations in the mid 90s. She's been afebrile. Hemodynamically stable. He count 21.3. Hemoglobin 14.8. Creatinine 0.68. ProBNP 5190, troponin 0.088, 0.0986. The plan is for surgical repair of her right hip today. Progress note dated 08/27/2017 The patient did have her hip surgery done yesterday. She is postop day #1. We placed her on IV Solu-Medrol and bronchodilators. Her ventilation perfusion lung scan was intermediate probability. Her chest x-ray shows diffuse bilateral is consistent with fluid overload and/or pneumonia. We'll make sure she is on appropriate antibiotics. Clinically she is doing okay. We'll have to watch her very closely. I am concerned about her. Physical therapy is working with her. N-terminal proBNP was elevated at 5190. Troponins were a bit elevated. Progress note dated 08/28/2017 The patient feels a bit more short of breath today. She is postop day #2, status post right hip surgery. She was placed on steroids and bronchodilators. Yesterday she was feeling better. The patient's chest x-ray shows multifocal infiltrates consistent with fluid overload and/or pneumonia. Today we will go ahead and treat her for thrush. She has oral thrush. In addition, we will do a CT angiogram of the chest to make sure there is no pulmonary embolism. Her N- terminal proBNP was elevated at 5190. Lab data includes a white count of 17 in room 13.9 hematocrit 42.1 and platelet count 482,000. Sodium potassium chloride and CO2 are normal. Anion gap normal. BUN and creatinine were 33 and 0.6. Chest x-ray from August 26 shows multifocal bilateral consolidations suspicious for pneumonia and/or pulmonary edema. On 08/29/2017 patient seen again in follow-up on surgical floor. This is day #3 , status post right hip hemiarthroplasty after sustaining a displaced right hip femoral neck fracture post fall. Patient remains on 10 L per high flow nasal cannula, and her O2 saturation is 99%, this can probably be weaned down, she is afebrile, hemodynamically stable. Denies any chest pain, denies any worsening dyspnea. Chest CTA from 08/28/2017 has been reviewed and shows new extensive multifocal consolidations in areas of groundglass opacity in a central distribution most likely related to extensive pulmonary edema, or multifocal pneumonia. No evidence of pulmonary embolism, and extensive mediastinal adenopathy and large left lower lobe as well as left perihilar masses highly suspicious for neoplasm. There were moderate bilateral pleural effusions and multifocal atelectasis. Adrenal gland nodule is incompletely characterized, and requires further workup. Patient has been getting IV Lasix at 20 mg daily, we will increase the dose to 40 mg IV every 12 hours, continue with current antibiotic coverage, continue with nebulized bronchodilators, will obtain ultrasound of bilateral chest. Today's labs were reviewed. Continue encouraging incentive spirometry, and pulmonary toileting. The patient is seen again today 08/30/2017 in follow-up on the surgical floor. This operative day #4 status post right hip hemiarthroplasty. She is currently sitting up in a chair at the bedside. She is awake and alert in no acute distress. She has been up ambulating with assistance. The plan is for discharge to subacute for rehabilitation. Ultrasounds did reveal a 7.1 cm pleural effusion on the left and a 3.7 cm effusion on the right. She was noted to have moderate bilateral pleural effusions and atelectasis which most likely have improved post diuresis. She has been diuresing well and her oxygen requirements have improved significantly. She is currently on 2 L/m per nasal cannula. We'll repeat a chest x-ray in the a.m. Objective - Vital Signs Vital signs: Vital Signs Temp 98.1 F 08/30/17 12:12 Pulse 94 08/30/17 12:12 Resp 16 08/30/17 12:12 BP 123/71 08/30/17 12:12 Pulse Ox 95 08/30/17 12:12 Intake & Output 08/29/17 08/30/17 08/30/17 18:59 06:59 18:59 Intake Total 200 350 Balance 200 350 Weight 63 kg Intake: Oral 200 350 Other: Voiding Method Bedside Commode # Voids 2 1 # Bowel Movements 2 - Exam GENERAL EXAM: Alert, fairly comfortable in no apparent distress. HEAD: Normocephalic. EYES: Normal reaction of pupils, equal size. NOSE: Clear with pink turbinates. THROAT: No erythema or exudates. NECK: No masses, no JVD. CHEST: No chest wall deformity. LUNGS: Equal air entry with faint end expiratory wheeze bilaterally. Diminished. CVS: S1 and S2 normal with no audible murmur, regular rhythm. ABDOMEN: No hepatosplenomegaly, normal bowel sounds, no guarding or rigidity. SPINE: No scoliosis or deformity SKIN: No rashes CENTRAL NERVOUS SYSTEM: No focal deficits, tone is normal in all 4 extremities. EXTREMITIES: Surgical site clean dry well approximated on the right hip. There is no peripheral edema. No clubbing, no cyanosis. Peripheral pulses are intact. - Labs CBC & Chem 7: 08/29/17 06:51 08/29/17 06:51 Labs: Abnormal Lab Results - Last 24 Hours (Table) 08/28/17 08/29/17 08/29/17 Range/Units 06:18 17:05 20:27 INR (<1.2) POC Glucose (mg/dL) 221 H 252 H (75-99) mg/dL Hemoglobin A1c 6.3 H (4.0-6.0) % 08/30/17 08/30/17 08/30/17 Range/Units 07:28 07:58 11:11 INR 1.2 H (<1.2) POC Glucose (mg/dL) 220 H 165 H (75-99) mg/dL Hemoglobin A1c (4.0-6.0) % Microbiology - Last 24 Hours (Table) 08/25/17 12:11 Blood Culture - Preliminary Blood No Growth after 96 hours Assessment and Plan Assessment: Assessment Status post fall with right hip fracture and subsequent repair. Postoperative day #4.. History of hypertension History of breast cancer, treated with left mastectomy as well as radiation and chemotherapy Recent upper respiratory tract infection treated with 2 courses of antibiotics Previous history of tobacco use, rule out COPD Chest x-ray and computed tomography scan findings suggesting significant abnormalities in the left chest consistent with either bronchogenic carcinoma and/or recurrent metastatic breast cancer. Status post cardiac catheterization with stent placement Peripheral vascular occlusive disease with previous stent placement Acute hypoxic respiratory failure secondary to bilateral pleural effusions left greater than right. Plan: The patient was seen and evaluated by Dr. Lees. We will continue IV diuretics. We will repeat her chest x-ray in the a.m. She is improving quite a bit from the pulmonary standpoint and down to just 2 L/m per nasal cannula. She is on Levaquin and cefepime. She is on Plavix for previous peripheral stent placement. She is currently on heparin subcu for DVT prophylaxis. We plan to workup the left lung mass in the outpatient setting. She'll need a PET scan and pulmonary function testing. Followed by most likely bronchoscopy with biopsies after holding Plavix for 5 days prior. These things will be done once the patient's recovered from her hip surgery. The plan is for subacute rehabilitation post discharge. We will continue to follow and make further recommendations based on her clinical status. I, the cosigning physician, performed a history & physical examination of the patient. Lungs sounds basilar crackles left greater than right. Maintaining good O2 saturations in the 90s on 2 L per nasal cannula. I discussed the assessment and plan of care with my nurse practitioner, Do Corona. I attest to the above note as dictated by her.
--- NOTE | 2017-08-30 15:40 | PN ---
PROGRESS NOTE DATE OF SERVICE: 08/30/2017. REASON FOR FOLLOWUP: Possible pneumonia. INTERVAL HISTORY: The patient is afebrile. She is breathing slightly comfortably. Did have a cough with very minimal sputum production. No chest pain. No abdominal pain. No diarrhea reported. EXAMINATION: Blood pressure 123/71 with a pulse of 94, temperature 98.1. She is 95% on 4 L nasal cannula. General description is an elderly female, lying in bed in no distress. Respiratory system: Unlabored breathing. Clear to auscultation anteriorly. Heart S1, S2, regular rate and rhythm. Abdomen soft, no tenderness. LABS: White count 16.3, BUN of 37, creatinine 0.63. DIAGNOSTIC IMPRESSION AND PLAN: Patient with abnormal concern for possible malignancy, underlying pneumonia not entirely excluded. Sputum culture provided. Currently on cefepime adjusting . Continue supportive care. MMODL / IJN: [id number] /
[2017-08-30] MEDS: PANTOPRAZOLE 40 MG TABLET PO SCH (16:41)
[2017-08-30 17:14] LABS: Glucose,Whole Blood 215 mg/dL (75-99)
--- NOTE | 2017-08-30 17:39 | P.PN ---
Subjective 81-year-old admitted for right femoral leg fracture status post surgery and the patient is presently being treated for congestive heart failure and pneumonia with levofloxacin and IV Lasix. Patient is also on IV steroids patient is being followed by multiple consultants. No overnight events. Patient had 7.1 cm pleural effusion on the left and 3.7 cm effusion on the right, effusion moderate bilateral pleural effusions. Presently on 2 L of oxygen Constitutional: Denied any fatigue denied any fever. Cardio vascular: denied any chest pain, palpitations Gastrointestinal denied any nausea vomiting Pulmonary: Denied any shortness of breath cough Neurologic denied any new focal deficits Objective - Vital Signs Vital signs: Vital Signs Temp 97.8 F 08/30/17 14:59 Pulse 72 08/30/17 16:01 Resp 16 08/30/17 14:59 BP 136/74 08/30/17 14:59 Pulse Ox 97 08/30/17 15:45 Intake & Output 08/29/17 08/30/17 08/30/17 18:59 06:59 18:59 Intake Total 200 350 Balance 200 350 Weight 63 kg Intake: Oral 200 350 Other: Voiding Method Bedside Commode # Voids 2 1 1 # Bowel Movements 2 1 - Exam PHYSICAL EXAMINATION: GENERAL: The patient is alert and oriented x3, not in any acute distress. Thin built female. HEENT: Pupils are round and equally reacting to light. EOMI. No scleral icterus. No conjunctival pallor. Normocephalic, atraumatic. No pharyngeal erythema. No thyromegaly. CARDIOVASCULAR: S1 and S2 present. No murmurs, rubs, or gallops. PULMONARY: Chest is clear to auscultation, no wheezing or crackles. ABDOMEN: Soft, nontender, nondistended, normoactive bowel sounds. No palpable organomegaly. MUSCULOSKELETAL: No joint swelling or deformity. EXTREMITIES: No cyanosis, clubbing, or pedal edema. NEUROLOGICAL: Gross neurological examination did not reveal any focal deficits. SKIN: No rashes. - Labs CBC & Chem 7: 08/29/17 06:51 08/29/17 06:51 Labs: Abnormal Lab Results - Last 24 Hours (Table) 08/29/17 08/30/17 08/30/17 Range/Units 20:27 07:28 07:58 INR 1.2 H (<1.2) POC Glucose (mg/dL) 252 H 220 H (75-99) mg/dL 08/30/17 08/30/17 Range/Units 11:11 17:09 INR (<1.2) POC Glucose (mg/dL) 165 H 215 H (75-99) mg/dL Microbiology - Last 24 Hours (Table) 08/25/17 12:11 Blood Culture - Preliminary Blood No Growth after 120 hours Assessment and Plan Plan: -Acute hypoxic and hypercapnic respiratory failure: Secondary to CHF COPD exacerbation along with possibility of pneumonia -Status post fall and right hip fracture subsequent repair postoperative day 4 -Hypertension -COPD with acute exacerbation -Coronary disease with stent placement in the past Have intravascular disease -Bilateral pleural effusions: Secondary to congestive heart failure exacerbation -Left lung mass workup as an outpatient once patient is more stable. Plan is to continue on systemic steroids and inhalational treatments IV Lasix and antibiotics kidney function monitoring
[2017-08-30] MEDS: SODIUM CHLORIDE 0.9% 1,000 ML IV SCH (18:19)
[2017-08-30 20:25] LABS: Glucose,Whole Blood 253 mg/dL (75-99)
[2017-08-30] MEDS: SENNOSIDES-DOCUSATE SODIUM 1 EACH TAB PO SCH (21:26)
[2017-08-30] MEDS: SERTRALINE 50 MG TAB PO SCH (21:30)
[2017-08-30] MEDS: amLODIPine 5 MG TAB PO SCH (21:30)
[2017-08-31] MEDS: methylPREDNISolone SOD SUCCI 40 MG/ML 1 ML VIAL IV SCH ×2 (05:52→13:42)
[2017-08-31] MEDS: IPRATROPIUM-ALBUTEROL 3 ML NEB INHALATION SCH ×2 (07:13→11:00)
[2017-08-31] MEDS: FORMOTEROL FUMARATE 20 MCG/2 ML NEBU INHALATION SCH (07:13)
[2017-08-31] MEDS: BUDESONIDE 1 MG/2 ML NEBU INHALATION SCH (07:13)
[2017-08-31 07:25] LABS: Glucose,Whole Blood 247 mg/dL (75-99)
[2017-08-31 07:33] LABS: HCT 42.6 % (34.0-46.0); HGB 14.1 gm/dL (11.4-16.0); MCHC 33.1 g/dL (31.0-37.0); MCV 87.5 fL (80.0-100.0); Mean Platelet Volume 8.8; Platelet Count 572 k/uL (150-450); RBC 4.87 m/uL (3.80-5.40); RDW 15.6 % (11.5-15.5); WBC 16.7 k/uL (3.8-10.6)
[2017-08-31 07:56] LABS: Calcium 9.1 mg/dL (8.4-10.2)
[2017-08-31] MEDS: INSULIN ASPART 100 UNIT/ML 1 ML 10 ML VIAL SQ SCH ×2 (08:42→13:33)
[2017-08-31] MEDS: PANTOPRAZOLE 40 MG TABLET PO SCH (08:45)
[2017-08-31] MEDS: CLOPIDOGREL 75 MG TAB PO SCH (08:45)
[2017-08-31] MEDS: FUROSEMIDE 10 MG/ML 4 ML VIAL IV SCH (08:46)
[2017-08-31] MEDS: FLUCONAZOLE 100 MG TAB PO SCH (08:46)
[2017-08-31] MEDS: HEPARIN SODIUM,PORCINE 5,000 UNIT/ML 1 ML VIAL SQ SCH (08:47)
[2017-08-31] MEDS: LOSARTAN-HCTZ 50-12.5 MG 1 EACH TAB PO SCH (08:47)
[2017-08-31] MEDS: LEVOFLOXACIN 500 MG TAB PO SCH (08:47)
[2017-08-31] MEDS: METOPROLOL TARTRATE 50 MG TAB PO SCH (08:47)
[2017-08-31] MEDS: ACETAMINOPHEN TAB 325 MG TAB PO PRN ×2 (09:02→15:08)
[2017-08-31] MEDS: CEFEPIME 2 GM in SODIUM CHLORIDE 0.9% 50 ML IVPB SCH (09:02)
[2017-08-31] MEDS ORDERED: MORPHINE ORAL SOLN 10 MG/5 ML CUP PO PRN (09:48)
[2017-08-31 11:23] VITALS: BMI 26.2
[2017-08-31 11:38] LABS: Glucose,Whole Blood 199 mg/dL (75-99)
--- NOTE | 2017-08-31 11:55 | P.PN ---
Subjective Progress Note Date: 08/31/17 Principal diagnosis: Diffuse bilateral infiltrates, mediastinal adenopathy and large left lower lobe as well as left perihilar masses, highly suspicious for neoplasm Progress note dated 08/27/2017 The patient did have her hip surgery done yesterday. She is postop day #1. We placed her on IV Solu-Medrol and bronchodilators. Her ventilation perfusion lung scan was intermediate probability. Her chest x-ray shows diffuse bilateral is consistent with fluid overload and/or pneumonia. We'll make sure she is on appropriate antibiotics. Clinically she is doing okay. We'll have to watch her very closely. I am concerned about her. Physical therapy is working with her. N-terminal proBNP was elevated at 5190. Troponins were a bit elevated. Progress note dated 08/28/2017 The patient feels a bit more short of breath today. She is postop day #2, status post right hip surgery. She was placed on steroids and bronchodilators. Yesterday she was feeling better. The patient's chest x-ray shows multifocal infiltrates consistent with fluid overload and/or pneumonia. Today we will go ahead and treat her for thrush. She has oral thrush. In addition, we will do a CT angiogram of the chest to make sure there is no pulmonary embolism. Her N- terminal proBNP was elevated at 5190. Lab data includes a white count of 17 in room 13.9 hematocrit 42.1 and platelet count 482,000. Sodium potassium chloride and CO2 are normal. Anion gap normal. BUN and creatinine were 33 and 0.6. Chest x-ray from August 26 shows multifocal bilateral consolidations suspicious for pneumonia and/or pulmonary edema. On 08/29/2017 patient seen again in follow-up on surgical floor. This is day #3 , status post right hip hemiarthroplasty after sustaining a displaced right hip femoral neck fracture post fall. Patient remains on 10 L per high flow nasal cannula, and her O2 saturation is 99%, this can probably be weaned down, she is afebrile, hemodynamically stable. Denies any chest pain, denies any worsening dyspnea. Chest CTA from 08/28/2017 has been reviewed and shows new extensive multifocal consolidations in areas of groundglass opacity in a central distribution most likely related to extensive pulmonary edema, or multifocal pneumonia. No evidence of pulmonary embolism, and extensive mediastinal adenopathy and large left lower lobe as well as left perihilar masses highly suspicious for neoplasm. There were moderate bilateral pleural effusions and multifocal atelectasis. Adrenal gland nodule is incompletely characterized, and requires further workup. Patient has been getting IV Lasix at 20 mg daily, we will increase the dose to 40 mg IV every 12 hours, continue with current antibiotic coverage, continue with nebulized bronchodilators, will obtain ultrasound of bilateral chest. Today's labs were reviewed. Continue encouraging incentive spirometry, and pulmonary toileting. The patient is seen again today 08/30/2017 in follow-up on the surgical floor. This operative day #4 status post right hip hemiarthroplasty. She is currently sitting up in a chair at the bedside. She is awake and alert in no acute distress. She has been up ambulating with assistance. The plan is for discharge to subacute for rehabilitation. Ultrasounds did reveal a 7.1 cm pleural effusion on the left and a 3.7 cm effusion on the right. She was noted to have moderate bilateral pleural effusions and atelectasis which most likely have improved post diuresis. She has been diuresing well and her oxygen requirements have improved significantly. She is currently on 2 L/m per nasal cannula. We'll repeat a chest x-ray in the a.m. On 08/31/2017 patient seen again in follow-up. She is awake, alert, oriented 3 , denies any distress. Her right hip postsurgical pain is under good control. Her FiO2 is down to 2 L per nasal cannula with a pulse ox of 98%, she is afebrile, hemodynamically stable, lung sounds are clear to auscultation. We will obtain a repeat chest x-ray today, her IV diuretics will be switched to oral Lasix. Antibiotics per ID service recommendations. Discharge planning is in progress for discharge to the subacute rehab today. Patient will have outpatient workup in regards to the left lung mass. Objective - Vital Signs Vital signs: Vital Signs Temp 97.0 F L 08/31/17 07:20 Pulse 68 08/31/17 11:12 Resp 16 08/31/17 07:20 BP 135/68 08/31/17 07:20 Pulse Ox 98 08/31/17 07:20 Intake & Output 08/30/17 08/31/17 08/31/17 18:59 06:59 18:59 Intake Total 600 200 Balance 600 200 Weight 63 kg Intake: Oral 600 200 Other: # Voids 1 3 # Bowel Movements 1 - Exam No acute distress, oriented 3. High flow nasal O2 in place at 2 L/m HEENT examination is grossly unremarkable. Mucous membranes are moist. No oral lesions. Neck supple. Full range of motion. No adenopathy thyromegaly or neck vein distention. Cardiovascular examination reveals regular rhythm rate. S1-S2 normal. No S3 or S4. No discernible murmur noted. Lungs reveal clear breath sounds. No wheezes noted on today's exam. Breath sounds are equal bilaterally. Abdomen soft bowel sounds are heard. No masses or tenderness. Extremities are intact. No cyanosis clubbing or edema. Skin is without rash or lesion. Neurologic examination is brief but nonfocal. - Labs CBC & Chem 7: 08/31/17 06:45 08/31/17 06:45 Labs: Abnormal Lab Results - Last 24 Hours (Table) 08/30/17 08/30/17 08/31/17 Range/Units 17:09 20:23 06:45 WBC 16.7 H (3.8-10.6) k/uL RDW 15.6 H (11.5-15.5) % Plt Count 572 H (150-450) k/uL Chloride (98-107) mmol/L BUN (7-17) mg/dL Glucose (74-99) mg/dL POC Glucose (mg/dL) 215 H 253 H (75-99) mg/dL 08/31/17 08/31/17 08/31/17 Range/Units 06:45 07:19 11:24 WBC (3.8-10.6) k/uL RDW (11.5-15.5) % Plt Count (150-450) k/uL Chloride 97 L (98-107) mmol/L BUN 57 H (7-17) mg/dL Glucose 207 H (74-99) mg/dL POC Glucose (mg/dL) 247 H 199 H (75-99) mg/dL Microbiology - Last 24 Hours (Table) 08/25/17 12:11 Blood Culture - Preliminary Blood No Growth after 120 hours Assessment and Plan Plan: Assessment Mechanical fall sustaining a displaced right femoral neck fracture, status post right hip hemiarthroplasty, stop day 3 Diffuse bilateral infiltrates, which may relate to fluid and/or pneumonia. Extensive mediastinal adenopathy and large left lower lobe as well as left perihilar masses highly suspicious for neoplasm Moderate bilateral pleural effusions and multifocal atelectasis History of hypertension History of breast cancer, treated with left mastectomy as well as radiation and chemotherapy Recent upper respiratory tract infection treated with 2 courses of antibiotics Previous history of tobacco use, rule out COPD Status post cardiac catheterization with stent placement Peripheral vascular occlusive disease with previous stent placement Shortness of breath, rule out pulmonary embolism Plan: Obtain repeat chest x-ray today, we'll switch to IV diuretics to oral. We'll obtain room air pulse ox, patient denies any dyspnea, breathing is much easier, lung sounds are clear. Patient will have outpatient follow-up in regards to the left lung mass, outpatient PET scan and baseline PFT. And a bronchoscopy with biopsy will be scheduled following that. Otherwise patient remains stable from pulmonary standpoint, and could be transferred to subacute rehab today. Antibiotics per ID service recommendations. I performed a history & physical examination of the patient and discussed their management with my nurse practitioner, Karuna Johnson. I reviewed the nurse practitioner's note and agree with the documented findings and plan of care. Lung sounds are clear. The findings and the impression was discussed with the patient. I attest to the documentation by the nurse practitioner. Time with Patient: Less than 30
--- NOTE | 2017-08-31 12:58 | P.DS ---
Providers Date of admission: 08/24/17 17:36 Attending physician: Lupe Lainez Consults: 08/24/17 17:38 Consult Physician Stat Consulting Provider: Lupe Lainez Consult Reason/Comments: Surgical clearance Do you want consulting provider notified?: Yes Consult Physician Stat Consulting Provider: John Gross Consult Reason/Comments: Lung mass Do you want consulting provider notified?: Yes 08/24/17 18:36 Consult Physician Routine Consulting Provider: Yobani Glaser Consult Reason/Comments: cad stent, preop clearance Do you want consulting provider notified?: Yes Consult Physician Routine Consulting Provider: Zan Jensen Consult Reason/Comments: lung ca? Do you want consulting provider notified?: Yes 08/26/17 16:27 Consult Physician Routine Consulting Provider: Elsa Ibarra Consult Reason/Comments: pneumonia Do you want consulting provider notified?: Yes 08/28/17 16:53 Consult Physician Routine Consulting Provider: Elsa Ibarra Consult Reason/Comments: pneumonia Do you want consulting provider notified?: Yes 08/29/17 12:16 Consult Physician Routine Consulting Provider: Abelino Anne Consult Reason/Comments: Hip Fracture Do you want consulting provider notified?: Already Contacted Primary care physician: Jimi Torres MD Hospital Course: 81-year-old admitted for right femoral leg fracture status post surgery and the patient is presently being treated for congestive heart failure and pneumonia with biotics and IV Lasix. Patient is also on IV steroids patient is being followed by multiple consultants. No overnight events. Patient had 7.1 cm pleural effusion on the left and 3.7 cm effusion on the right, effusion moderate bilateral pleural effusions. on 2 L of oxygen 08/31/2017 Patient is clinically doing well off oxygen no thoracocentesis is being planned and the patient is cleared by pulmonology for discharge. Pulmonology will follow-up as an outpatient once she is stabilized her lung lesions need to be biopsied. PHYSICAL EXAMINATION: GENERAL: The patient is alert and oriented x3, not in any acute distress. Thin built female. HEENT: Pupils are round and equally reacting to light. EOMI. No scleral icterus. No conjunctival pallor. Normocephalic, atraumatic. No pharyngeal erythema. No thyromegaly. CARDIOVASCULAR: S1 and S2 present. No murmurs, rubs, or gallops. PULMONARY: Chest is clear to auscultation, no wheezing or crackles. ABDOMEN: Soft, nontender, nondistended, normoactive bowel sounds. No palpable organomegaly. MUSCULOSKELETAL: No joint swelling or deformity. EXTREMITIES: No cyanosis, clubbing, or pedal edema. NEUROLOGICAL: Gross neurological examination did not reveal any focal deficits. SKIN: No rashes. Assessment and Plan Plan: -Acute hypoxic and hypercapnic respiratory failure: Secondary to CHF COPD exacerbation along with possibility of pneumonia -Status post fall and right hip fracture subsequent repair postoperative day 5 -Hypertension -COPD with acute exacerbation -Coronary disease with stent placement in the past -Bilateral pleural effusions: Secondary to congestive heart failure exacerbation off oxygen, will not require any tobacco sepsis at this time Lasix will be continued orally as an outpatient -Left lung mass workup as an outpatient once patient is more stable. Patient Condition at Discharge: Fair Plan - Discharge Summary Discharge Rx Participant: No New Discharge Prescriptions: New Acetaminophen Tab [Tylenol] 650 mg PO Q6HR PRN tab PRN Reason: Mild Pain Or Fever > 100.5 Budesonide [Pulmicort] 1 mg INHALATION RT-BID nebu Cefuroxime Axetil [Ceftin] 500 mg PO BID #10 tab Fluconazole [Diflucan] 100 mg PO DAILY #5 tab Formoterol Fumarate [Perforomist] 20 mcg INHALATION RT-BID nebu Ipratropium-Albuterol Nebulize [Duoneb 0.5 mg-3 mg/3 ml Soln] 3 ml INHALATION RT-QID PRN ampul.neb PRN Reason: Shortness Of Breath Or Wheezing Losartan [Cozaar] 50 mg PO DAILY #1 tab Metoprolol Tartrate [Lopressor] 50 mg PO BID tab Continue methylPREDNISolone [Medrol Dose Pack] See Taper PO DIRECTED amLODIPine [Norvasc] 5 mg PO HS Sertraline [Zoloft] 50 mg PO HS Doxycycline Hyclate [Vibramycin] 100 mg PO BID Clopidogrel [Plavix] 75 mg PO DAILY Discontinued Losartan/Hydrochlorothiazide [Hyzaar 100-25 Tablet] 1 tab PO DAILY Discharge Medication List Clopidogrel [Plavix] 75 mg PO DAILY 08/24/17 [History] Doxycycline Hyclate [Vibramycin] 100 mg PO BID 08/24/17 [History] Sertraline [Zoloft] 50 mg PO HS 08/24/17 [History] amLODIPine [Norvasc] 5 mg PO HS 08/24/17 [History] methylPREDNISolone [Medrol Dose Pack] See Taper PO DIRECTED 08/24/17 [History ] Acetaminophen Tab [Tylenol] 650 mg PO Q6HR PRN tab 08/31/17 [Rx] Budesonide [Pulmicort] 1 mg INHALATION RT-BID nebu 08/31/17 [Rx] Cefuroxime Axetil [Ceftin] 500 mg PO BID #10 tab 08/31/17 [Rx] Fluconazole [Diflucan] 100 mg PO DAILY #5 tab 08/31/17 [Rx] Formoterol Fumarate [Perforomist] 20 mcg INHALATION RT-BID nebu 08/31/17 [Rx] Ipratropium-Albuterol Nebulize [Duoneb 0.5 mg-3 mg/3 ml Soln] 3 ml INHALATION RT -QID PRN ampul.neb 08/31/17 [Rx] Losartan [Cozaar] 50 mg PO DAILY #1 tab 08/31/17 [Rx] Metoprolol Tartrate [Lopressor] 50 mg PO BID tab 08/31/17 [Rx] Follow up Appointment(s)/Referral(s): Shivam Queen MD [STAFF PHYSICIAN] - 1-2 Days Zan Jensen DO [Doctor of Osteopathic Medicine] - 09/08/17 2:00 pm Abner Arauz PAC [PHYSICIAN [employer]] - 09/13/17 3:40 pm Nonstaff,Physician [REFERRING] - 1-2 days Activity/Diet/Wound Care/Special Instructions: Orthopedic discharge instructions: Weight-bear as tolerated, utilize walker Utilize hip abductor brace while in bed Posterior hip precautions for 4 weeks Okay to shower over bandage Plan [facility] for recheck including x- rays Discharge Disposition: TRANSFER TO SNF/ECF
--- NOTE | 2017-08-31 14:39 | XR ---
EXAMINATION TYPE: XR chest 1V DATE OF EXAM: 08/31/2017 COMPARISON: CT chest 08/28/2017, chest x-ray 08/26/2017 HISTORY: Follow-up congestive heart failure, lung mass TECHNIQUE: Single frontal view of the chest is obtained. FINDINGS: There is improvement in the interstitium, aeration within the lungs. Lung mass is stable. No pneumothorax or sizable effusion. IMPRESSION: Improvement in aeration and volume status.
--- NOTE | 2017-08-31 14:47 | PN ---
PROGRESS NOTE DATE OF SERVICE: 08/31/2017 REASON FOR FOLLOWUP: Possible pneumonia. INTERVAL HISTORY: The patient is afebrile, she is breathing more comfortably. Denies having any chest pain, minimal cough. Admits to dry in nature. No abdominal pain. No nausea, vomiting, or any diarrhea. PHYSICAL EXAMINATION: Blood pressure 135/68 with a pulse of 64, temperature 97, she is 98% on room air. General description is an elderly female up in the chair, in no distress. RESPIRATORY SYSTEM: Unlabored breathing, clear to auscultation with crackles. HEART: S1, S2. Regular rate and rhythm. ABDOMEN: Soft, no tenderness. LABS: Hemoglobin is 14.9, white count is 16.7, BUN of 57, creatinine 0.85. Blood culture to be negative. DIAGNOSTIC IMPRESSION AND PLAN: Patient with an abnormal x-ray with question of possible pneumonia, clinical suspicion high for malignancy. The patient seemed to be discharged today from Surgery and medical standpoint. Will give a short course of oral Ceftin to finish therapy. Continue supportive care. Family present at bedside. Their questions were answered. MMODL / IJN: [id number] /
[2017-08-31 14:51] VITALS: BP 130/61; PULSE 88; TEMP 96.9
[2017-08-31] MEDS ORDERED: SYMBICORT 160-4.5 MCG INHALER INHALATION SCH (20:00)
[2017-09-01] MEDS ORDERED: FUROSEMIDE 40 MG TAB PO SCH (09:00)
[2017-09-01] MEDS ORDERED: LEVOFLOXACIN 250 MG TAB PO SCH (09:00)
== END 2017-08-31 15:25 | DRG 469 ==
LOC: SUPCPDRO 15:00 → EC 15:00 → 3SUR 17:36
PROVIDERS: ADMIT Orthopaedic Surgery; ATTEND Hospitalist
PROC: 0SRR01A Replacement of Right Hip Joint, Femoral Surface with Metal Synthetic Substitute, Uncemented, Open Approach (ICD-10-PCS; principal; 2017-08-24)
DX: M84.459A Pathological fracture, hip, unspecified, initial encounter for fracture (principal); J15.6 Pneumonia due to other Gram-negative bacteria; J96.01 Acute respiratory failure with hypoxia; J96.02 Acute respiratory failure with hypercapnia; I50.33 Acute on chronic diastolic (congestive) heart failure; B37.0 Candidal stomatitis; J44.0 Chronic obstructive pulmonary disease with (acute) lower respiratory infection; J44.1 Chronic obstructive pulmonary disease with (acute) exacerbation; E78.5 Hyperlipidemia, unspecified; F32.9 Major depressive disorder, single episode, unspecified; I11.0 Hypertensive heart disease with heart failure; I25.10 Atherosclerotic heart disease of native coronary artery without angina pectoris; I27.20 Pulmonary hypertension, unspecified; I44.7 Left bundle-branch block, unspecified; I73.9 Peripheral vascular disease, unspecified; K21.9 Gastro-esophageal reflux disease without esophagitis; R79.1 Abnormal coagulation profile; S41.119A Laceration without foreign body of unspecified upper arm, initial encounter; S51.011A Laceration without foreign body of right elbow, initial encounter; W01.0XXA Fall on same level from slipping, tripping and stumbling without subsequent striking against object, initial encounter; Y92.009 Unspecified place in unspecified non-institutional (private) residence as the place of occurrence of the external cause; Y93.01 Activity, walking, marching and hiking; Z79.02 Long term (current) use of antithrombotics/antiplatelets; Z79.899 Other long term (current) drug therapy; Z82.49 Family history of ischemic heart disease and other diseases of the circulatory system; Z83.3 Family history of diabetes mellitus; Z85.3 Personal history of malignant neoplasm of breast; Z86.73 Personal history of transient ischemic attack (TIA), and cerebral infarction without residual deficits; Z87.891 Personal history of nicotine dependence; Z88.0 Allergy status to penicillin; Z90.12 Acquired absence of left breast and nipple; Z90.49 Acquired absence of other specified parts of digestive tract; Z90.710 Acquired absence of both cervix and uterus; Z95.5 Presence of coronary angioplasty implant and graft; Z92.21 Personal history of antineoplastic chemotherapy; Z88.5 Allergy status to narcotic agent; Z92.3 Personal history of irradiation; R91.8 Other nonspecific abnormal finding of lung field
CPT/HCPCS: 36415; 36600; 51702; 71045; 71260; 71275; 73501; 73502; 76604; 78582; 80048; 80053; 81003; 82550; 82553; 82805; 83036; 83880; 84484; 85025; 85027; 85379; 85610; 85730; 86300; 87040; 87086; 88305; 88311; 90471; 90715; 93005; 93306; 94640; 94760; 96374; 96375; 96376; 99285

== ENCOUNTER → 2017-09-23 | Outpatient (CLI) | payer MEDICARE | END | disposition home or self-care (01) | LOC: RADPETMAIN 09:24 | PROVIDERS: ATTEND Internal Medicine Critical Care Medicine | DX: R91.8 Other nonspecific abnormal finding of lung field (principal); Z53.9 Procedure and treatment not carried out, unspecified reason ==